=== PATIENT | female | born 1995 | race Two or more races ===

== ENCOUNTER 2024-10-04 12:26 | Observation (INO) | payer MEDICAID, SELFPAY ==
[2024-10-04] VITALS (72 sets, daily range): BP systolic 98–123; BP diastolic 53–71; PULSE 79–108; RESP 16–100; TEMP 36.6–36.7; O2SAT 87–100; BMI 27.9; BMI 28.1
--- NOTE | 2024-10-04 12:07 | PD.EDRME ---
Rapid Medical Screening Exam RME Arrival date/time: 10/04/24 11:09 This is a 29-year-old female that is a 3 para 2. Patient states she is approximately 29 weeks . Patient comes in with complaints of slipping in the shower. Patient states that she realized she slipped in the shower and just felt weakness after that. Patient states she felt dizzy and lightheaded. Patient states that she kind of fell to the side and hit her head to the bathtub a second time. Pt has a small abrasion to right forehead. Patient states that she has not felt her baby move after the fall. Patient will be sent to OB first and to be evaluated Chief Complaint: Fall Time Seen by Provider: 10/04/24 11:34 Vital signs: Vital Signs Temperature 98.1 F 10/04/24 11:34 Pulse Rate 86 10/04/24 11:34 Respiratory Rate 16 10/04/24 11:34 Blood Pressure 98/67 10/04/24 11:34 Pulse Oximetry (%) 99 10/04/24 11:34 Oxygen Delivery Method Room Air 10/04/24 11:34
--- NOTE | 2024-10-04 13:20 | XR_ITS ---
Examination: Complete OB ultrasound greater than 14 weeks Date and time of exam: October 04, 2024 1541 hrs. Indications: Patient fell today, single episode with pelvic pain Findings: Viable intrauterine single fetus with single amniotic sac presentation cephalic Cardiac motion 133 BPM Placenta fundal grade 0 Umbilical cord insertion seen Amniotic fluid index 12.0 cm Ovaries obscured by bowel gas. Composite estimated gestational age based on BPD, head circumference, abdominal circumference, femur length is 29 weeks 2 days Estimated weight 1377 g. Survey of intracranial anatomy, spinal anatomy, abdominal anatomy, four-chamber heart performed with no abnormalities identified. Impression: Viable intrauterine gestation cephalic presentation.
[2024-10-04 13:55] LABS: Basophils % (Auto) 0 % (0-2.5); Eosinophils # (Auto) 0.2 Thou/mm3 (0.0-0.5); Eosinophils % (Auto) 1 % (0-10); Hematocrit 34.7 % (36.0-46.0); Hemoglobin 11.9 g/dL (12.0-16.0); Immature Granulocytes % (Auto) 1 % (0-0); Immature Granulocytes Auto 0.08 Thou/mm3 (0.00-0.00); Lymphocytes # (Auto) 1.1 Thou/mm3 (1.0-4.8); Lymphocytes % (Auto) 9 % (10-50); Mean Corpuscular HGB Conc 34.3 g/dl (31.0-37.0); Mean Corpuscular Volume 87 fL (80-100); Monocytes # (Auto) 0.5 Thou/mm3 (0.0-0.8); Monocytes % (Auto) 4 % (0-12); Neutrophils # (Auto) 11.5 Thou/mm3 (1.8-7.7); Neutrophils % (Auto) 86 % (37-80); Nucleated Red Blood Cell % 0 /100 WBC (0); Platelet Count 267 Thou/mm3 (140-440); RDW Standard Deviation 39.5 fL (36.4-46.3); Red Blood Count 3.97 Miln/mm3 (4.00-5.20); White Blood Count 13.4 Thou/mm3 (3.6-11.0)
[2024-10-04 14:08] LABS: Fibrinogen 467 mg/dL (175-375); Partial Thromboplastin Time 24.6 Seconds (22.0-36.0); Prothrombin Time 10.5 Seconds (9.0-12.2)
--- NOTE | 2024-10-04 18:25 | ESPR_ITS ---
Documentation for date of: 10/04/24 OB Labor Progress Note Assessment and Plan Comments: Patient is a 29yo with SIUP at approx 29wk presenting to L&D after a fall. She notes feeling lightheaded and falling in shower. After getting out of the shower, she again felt lightheaded, believes she fainted and fell in her bedroom (not sure if she ever hit abdomen). She woke to her daughter screaming. [place] lightheaded once more when she initially presented to L&D, but no further episodes during the prolonged monitoring on L&D. Her concern is increased discomfort over her pubic bone with leg lifting- she has been having this for the past weeks with this (didn't have it with 2 prior pregnancies), but now seems worse after her fall. She notes no painful/regular ctx, no vaginal bleeding, no loss of fluid. Normal movement (wasn't sure she was feeling movement right after the fall which worried her, but has felt robust movement while on L&D). Current : She has had regular OB care with her OBGYN Hx of 2 term ROS negative other than what was described above. Vitals wnl, afebrile General: well developed, well nourished, no acute distress, conversant. Alert and oriented x3. No facial (forehead) bruising where patient endorses having hit her head. Cardiac: normal heart rate Lungs: breathing without distress Abdomen: soft, gravid, non-tender, no rebound or guarding. Discomfort over pubic symphysis. Extremities: no pain with palpation of calves No vaginal bleeding SCE: closed/50/-3, posterior/soft Prolonged monitoring: Cat 1 FHRT with +accels, no decels, mod maría [place]: no ctx pattern Radiology: Complete OB ultrasound greater than 14 weeks Date and time of exam: October 04, 2024 1541 hrs. Indications: Patient fell today, single episode with pelvic pain Findings: Viable intrauterine single fetus with single amniotic sac presentation cephalic Cardiac motion 133 BPM Placenta fundal grade 0 Umbilical cord insertion seen Amniotic fluid index 12.0 cm Ovaries obscured by bowel gas. Composite estimated gestational age based on BPD, head circumference, abdominal circumference, femur length is 29 weeks 2 days Estimated weight 1377 g. Survey of intracranial anatomy, spinal anatomy, abdominal anatomy, four-chamber heart performed with no abnormalities identified. Impression: Viable intrauterine gestation cephalic presentation. Labs: O positive maternal blood type Hgb 11.9 plt 267 fibrinogen 467 Assessment: Patient is a 29yo with SIUP at approx 29wk with no evidence of placental abruption s/p fall. Normal prolonged monitoring >6hr from fall. Rh positive. No anemia. Vitals wnl, benign exam. 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 I observed patient getting out of bed and ambulating to and from the restroom- despite discomfort from pubic diastasis, she has no impediment to ambulation. Plan: -Discussed reassuring findings with patient -Follow up with OB visit as scheduled -Discussed return precautions at length for vaginal bleeding, loss of fluid, contractions, worsening discomfort, decreased movement. -Note given for 1 week off work to rest to address pubic diastasis discomfort - to remain with patient for 24hr after fall and return for any changes in mentation or other concerning symptoms June Cordova MD
== END 2024-10-04 18:28 | disposition home or self-care (01) ==
PROVIDERS: Admitting Provider Obstetrics & Gynecology; Visit Provider Obstetrics & Gynecology
DX: O9A.213 Injury, poisoning and certain other consequences of external causes complicating pregnancy, third trimester (principal); S39.91XA Unspecified injury of abdomen, initial encounter; Z3A.29 29 weeks gestation of pregnancy; W18.2XXA Fall in (into) shower or empty bathtub, initial encounter
CPT/HCPCS: 36415; 59899; 76805; 80053; 81001; 85025; 85384; 85610; 85730

== ENCOUNTER 2024-10-14 15:27 | Outpatient (AMB) | payer MEDICAID, SELFPAY ==
--- NOTE | 2024-10-14 15:38 | AMB.OBINITIA ---
Vital Signs 10/14/24 15:39 Weight 69.456 kg Weight Measurement Method Standing Scale BP 106/70 Blood Pressure Source Automatic Cuff Blood Pressure Location Left Upper Arm Position Sitting Respiration 16 Pulse 91 Pulse Source Monitor Temp 97.2 F Temp Source Oral Pulse Oximetry (%) 99 Oxygen Delivery Method Room Air Allergies/Home Meds Allergies & Medications Allergies No Known Allergies Allergy (Verified 10/14/24 15:40) Medication Reconciliation No Known Home Medications 10/14/24 [History Confirmed 10/14/24] Intake Visit Data Collection New Patient or Established: Established Patient (seen at [facility] within 3 years) Reason for Visit:: OB Transfer of Care Consent obtained for Telemed Visit: No Seen by Clinical Staff ONLY (RN/MA): No Zipper Joiner Required: No Do You Feel Safe at Home: Yes Authorities Contacted: N/A PCP or OBGYN visit in last 3 months: Yes Date of Last PCP or OBGYN visit: 10/04/24 Hx Now: Yes Are you currently on any form of Control: No Last menstrual period: 03/12/24 Pain Present Currently: No Pain Scale Used: Flores-Serrano/Numerical Pain scale:: 0 Smoking Status Smoking Status: Never smoker Questionnaires Covid-19 Vaccine Questionnaire Has patient been vacinated for Covid-19 Have you been vacinated for Covid-19: Yes PHQ-9 PHQ-2 Over the last 2 weeks, how often have you been bothered by any of the following problems? 1. Little interest or pleasure in doing things: not at all 2. Feeling down, depressed, or hopeless: not at all Total score: 0 Depression screen completed yes Social History Living Situation History Marital Status: Lives With: Family Housing: House Tobacco History Smoking Status: Never smoker Alcohol History Alcohol Intake: Current Domestic Abuse History Do You Feel Safe at Home: Yes Past Medical History Past Medical History Have you ever been diagnosed with any of the following: Neurological Problems Cerebrovascular Accident (CVA): No Transient Ischemic Attacks (TIA): No Dementia: No Alzheimer's Disease: No Parkinson's Disease: No Brain Tumor: No Meningitis: No Seizures: No Epilepsy: No Multiple Sclerosis: No Cerebral Palsy: No Amyotrophic Lateral Sclerosis (ALS/Kelsey Gehrig's): No Guillain-Hartsfield Syndrome: No Spina Bifida: No Paralysis: No Peripheral Neuropathy: No Perez's Palsy: No Subdural Hematoma: No Migraine: No Head Trauma: No Spinal Cord Injury: No Traumatic Brain Injury: No Cardiology Problems Myocardial Infarction: No Cardiac Arrhythmia: No Atrial Fibrillation: No Angina: No Heart Murmur: No Coronary Artery Disease: No Atherosclerotic Heart Disease: No Peripheral Vascular Disease: No Hypercholesterolemia: No Aneurysm: No Congestive Heart Failure: No Congenital Heart Disease: No Valvular Heart Disease: No Rheumatic Fever: No Cardiomyopathy: No Edema: No Pericarditis: No Cellulitis: No Deep Vein Thrombosis: No Hypertension: No Hypotension: No Varicose Veins: No Respiratory Problems Chronic Obstructive Pulmonary Disease (COPD): No Asthma: Yes (Controlled asthma) Bronchitis: No Emphysema: No Pneumonia: No Pulmonary Fibrosis: No Tuberculosis: No Pulmonary Embolism: No Pulmonary Edema: No Sleep Apnea: No Stomache/Intestinal Problems Hepatitis: No Cirrhosis: No Pancreatitis: No Celiac Disease: No Gall Bladder Disease: No Gastrointestinal Bleed: No Esophageal Varices: No Choi's Esophagus: No Colitis: No Ulcerative Colitis: No Diverticulitis: No Diverticulosis: No Ulcer: No Colorectal Cancer: No Irritable Bowel: No Crohn's Disease: No Obstructive Bowel: No Hiatal Hernia: No Hemorrhoids: No Gastroesophageal Reflux Disease: No Obesity: No Genital/Urinary Problems Renal Disease: No Kidney Stones: No Polycystic Kidney Disease: No Neurogenic Bladder: No Inguinal Hernia: No Dialysis: No Prostate Cancer: No Benign Prostatic Hyperplasia: No Reproductive Problems Breast Cancer: No Endometriosis: Yes Genital Herpes: No Gonorrhea: No Pelvic Inflammatory Disease: No Previous Pregnancies: No Syphilis: No Testicular Cancer: No Uterine Prolapse: No Musculoskeletal Problems Muscular Dystrophy: No Myasthenia Gravis: No Marfan's Syndrome: No Bone Cancer: No Arthritis: No Rheumatoid Arthritis: No Osteoporosis: No Degenerative Disk Disease: No Gout: No Scoliosis: No Carpal Tunnel Syndrome: No Fibromyalgia: No Fractures: No Degenerative Joint Disease: No Osteomyelitis: No Poliovirus: No Head,Eye,Nose,Throat Problems Cataracts: No Glaucoma: No Blind: No Retinal Detachment: No Macular Degeneration: No Chronic Ear Infections: No Deafness: No Eye Prosthesis: No Endocrine Problems Diabetes Mellitus Type 1: No Diabetes Mellitus Type 2: No Hypoglycemia: No Kinza's Syndrome: No Providence's Disease: No Hyperthyroidism: No Hypothyroidism: No Parathyroid Disease: No Pituitary Disease: No Systemic Lupus Erythematosus: No Syndrome of Inappropriate Antidiuretic Hormone: No Adrenal Disease: No Graves' Disease: No Blood Problems Anemia: No Leukemia: No Hemophilia: No Thalassemia: No Sickle Cell Disease: No Clotting Problems: No Psychologic Problems Schizophrenia: No Recreational Drug Use: No Bipolar Disorder: No Depression: No Anxiety: No Behavior Problems: No Self-Mutilation: No Attention Deficit Disorder: No Attention Deficit Hyperactivity Disorder: No Depression: No Post Traumatic Stress Disorder: No Eating Disorder: No Other Problems Hospitalization: No Down Syndrome: No Autism: No Developmental Delay: No Shingles: No Falls: No Blood Transfusions: No Blood Transfusion Reaction: No Anesthesia Reactions: No Organ Transplant: No Chemotherapy: No Radiation Therapy: No Hyperbaric Therapy: No MRSA: No Vancomycin-Resistant Enterococci: No Human Immunodeficiency Virus (HIV): No Chicken Pox: Yes Measles: No Mumps: No Rubella ([place] Measles): No Pertussis: No Clostridium Difficile: No Cancer: No Cervical Cancer: No Lung Cancer: No Ovarian Cancer: No Surgical History Carotid Endarterectomy: No Coronary Artery Bypass Graft: No Valve Replacement: No Hysterectomy: No Pacemaker: No Thyroidectomy: No History of Present Illness HPI Narrative Patient is at 28 weeks gestation presenting for transfer of care from a different facility. has been uncomplicated thus far. She reports a history of short cervix in her first , but no such complication in the current . Patient experienced three episodes of dizziness and fainting at home, describing feeling lightheaded and not herself, which prompted an ER visit. At the ER, her initial blood pressure was 84/53, later improving to 98/xx. Patient admits to drinking approximately 32 ounces of water daily. ER testing was reported as normal. Patient received Tdap vaccine and mentioned a lymph node issue post-vaccination. She expressed feeling a bit sad about her work schedule compared to previous pregnancies. A plan is in place to monitor the baby's heart rate weekly starting at 32 weeks due to low blood pressure episodes. OB Initial Visit Menstrual History Menstrual reliability: definite Flow: normal Menstrual regularity: regular Monthly: Yes On control pills at conception: No OB History : 3 Para: 2 Hx # Pregnancies: 0 Hx Total # of Abortions (Spontaneous & Elective): 0 # of Living Children: 2 Delivery History 1st : Child's name: JANET date: 06/11/15 sex: female weight (lbs): 7000 g History of depression before or after : No 2nd : Child's name: CHRISTIANNE date: 08/03/19 sex: female Delivery type: vaginal weight (lbs): 6000 g History of depression before or after : No Infection History & Risk Evaluation History of STDs: none HIV risk evaluation: low risk Hepatitis B risk evaluation: low risk Patient or partner has history of Genital Herpes: No Varicella/chicken pox status: immunized Genetic Screening & History Genetic Screening/Teratology Counseling - Includes patient, baby's father, or anyone in either family with: 1. Patient's age 35 years or older as of estimated date of delivery: No 2. Thalassemia (Hebrew, Divehi, Mediterranean, or Background); MCV less than 80: No 3. Neural Tube Defect (Meningomyelocele, Spina Bifida, or Anencephaly): No 4. Congenital Heart Defect: No 5. Down Syndrome: No 6. Cecil-Sachs (Ashkenazi Jehovah'S Witness, Cajun, Citizen Of [place] British): No 7. Jaylyn Disease (Ashkenazi Jehovah'S Witness): No 8. Familial Dysautonomia (Ashkenazi Jehovah'S Witness): No 9. Sickle Cell Disease or Trait (): No 10. Hemophilia or other blood disorders: No 11. Muscular Dystrophy: No 12. Cystic Fibrosis: No 13. Rodney's Chorea: No 14. Mental Retardation/Autism: No 15. Other inherited genetic or chromosomal disorder: No 16. Maternal Metabolic Disorder (EG,TYPE 1 Diabetes, PKU): No 17. Patient or baby's father had a child with defects not listed above: No 18. Recurrent loss or a stillbirth: No 19. Medications (including supplements, vitamins, herbs or otc drugs)/illicit/recreational drugs/alcohol since last menstrual period: No 20. Any other: No Infection History 1. Live with someone with TB or exposed to TB: No 2. Rash or viral illness since last menstrual period: No 3. Hepatitis B,C: No Other (see comments) Source: [employer] OB Flowsheet OB Flowsheet Initial Weight: Not Recorded Date <del>?</del> EGA Weight Edema CTX Effacement BP Fundal ht Pres Dilation Effacement Station Visit Note Alb Glu FHR Mov 10/14/24 <del>?</del> 30w 6d 69.456 kg 106/70 31 cephalic 155 active Review of Systems Review of Systems Systems Reviewed: All systems reviewed, normal except as documented Exam General Limitations: no limitations General Appearance: alert, in no apparent distress, comfortable, cooperative, healthy appearing, well developed and well groomed Head Head exam: atraumatic, normocephalic and normal inspection Neck Neck exam: Present normal inspection, full ROM and trachea midline Chest Chest inspection: Present normal inspection and symmetric chest wall rise Abdominal Abdominal exam: Present soft and normal bowel sounds Extremities Extremities exam: Present normal inspection and full ROM Back Back exam: Present normal inspection and full ROM Psych Psychiatric exam: Present normal affect and normal mood Skin Skin exam: Present warm, dry, intact and normal color Assessment & Plan Diagnosis / Problem List (1) Supervision of high risk , unspecified, third trimester: Status: Acute Plan: Diagnostic Test Results and Labs: - Blood group: O positive, antibody screen negative - Rubella: Non-immune - RPR: Non-reactive - Hepatitis B surface antigen: Negative - Hepatitis C: Negative - HIV: Negative - Gonorrhea and chlamydia: Negative - NIPT (Non-Invasive Testing): Negative times three - ER testing: Normal (specific tests not specified) Assessment and Plan: , , 28 weeks gestation: - Uncomplicated thus far. - History of short cervix in first , not present in current . - Previous screening and tests reassuring. - Rubella non-immune, blood type O positive with negative antibody screen. - Schedule next ultrasound with Dr. Hernandez in 4 weeks. - Initiate weekly NSTs starting at 32 weeks gestation. - Patient's last day of work: October 27, 2024. - Maternity leave start: October 28, 2024. - Estimated due date: December 17, 2024. Recurrent syncope with hypotension: - Three episodes of dizziness and fainting at home, two involving actual fainting. - ER visit: initial BP 84/53, later improved to 98/xx. - ER testing reported as normal. - Patient drinking only about 32 ounces of water daily. - Encourage increased fluid intake. - Monitor blood pressure at future visits. - Patient placed on light duty at work due to fainting episodes. Immunization status: - Tdap vaccine received during recent ER visit. - Patient mentioned lymph node issue post-Tdap, advised not to worry. - No other vaccines currently needed. Additional Plan Follow Up: 2 Weeks Office Procedures OB Clinic LOC & Office Proc's Nursing/Assessment Patient Status: Initial/New Patient OB Clinic Nursing Assessment: BP Monitoring, Medication Reconciliation, Update PMH in EMR and Vital Signs OB Clinic Coordination of Care: Consent,records obtained, informed consent, Education Simp Pt/Fam, Lab and Imaging orders and Staff clarify orders Special Needs: Heart tones New Patient Charge New Patient Point Assignment: [id number] New Patient Point Charge: CHANNEL WORKER Level 4 ([id number]) Antepartum Initial or Follow-up Antepartum Initial Visit: Yes
[2024-10-14 15:39] VITALS: BP 106/70; PULSE 91; RESP 16; TEMP 36.2; O2SAT 99
== END 2024-10-14 15:50 | disposition home or self-care (01) ==
LOC: HODSOBC 15:27
PROVIDERS: PCP Obstetrics & Gynecology; Supervising Provider Obstetrics & Gynecology; Visit Provider Obstetrics & Gynecology
DX: O09.93 Supervision of high risk pregnancy, unspecified, third trimester (principal); Z3A.28 28 weeks gestation of pregnancy
CPT/HCPCS: 99204; 99214; G0463

== ENCOUNTER 2024-10-27 12:19 | Outpatient (CLI) | payer MEDICAID, SELFPAY ==
[2024-10-27 12:25] VITALS: BP 118/77; PULSE 93
--- NOTE | 2024-10-27 12:31 | XR_ITS ---
Examination: age Limited Technique: Limited transabdominal sonographic images pelvis Indications: History low amniotic fluid on ultrasound examination October 23, 2024 Findings: Amniotic fluid index 8.0 cm Cardiac motion 155 BPM Impression: Amniotic fluid index 8.0 cm
[2024-10-27 12:33] VITALS: BMI 28.9
[2024-10-27 12:34] VITALS: BP 118/77; PULSE 93; RESP 18; RESP 99; TEMP 36.7
== END 2024-10-27 14:10 | disposition home or self-care (01) ==
LOC: S4S1 12:20 → S4SX 12:21
PROVIDERS: Referring Provider Obstetrics & Gynecology; Visit Provider Obstetrics & Gynecology
DX: Z34.83 Encounter for supervision of other normal pregnancy, third trimester (principal); Z36.89 Encounter for other specified antenatal screening; Z3A.32 32 weeks gestation of pregnancy
CPT/HCPCS: 59025; 76815

== ENCOUNTER 2024-10-28 09:04 | Outpatient (AMB) | payer MEDICAID, SELFPAY ==
[2024-10-28 09:18] VITALS: BP 94/61; PULSE 123; RESP 16; TEMP 36.2; O2SAT 99; BMI 28.3
--- NOTE | 2024-10-28 09:18 | OBCLNT_ITS ---
Vital Signs 10/28/24 09:18 Height 1.55 m Height Method Stated Weight 68.039 kg Weight Measurement Method Standing Scale BMI 28.3 BP 94/61 Blood Pressure Source Automatic Cuff Blood Pressure Location Left Upper Arm Position Sitting Respiration 16 Pulse 123 H Pulse Source Monitor Temp 97.2 F Temp Source Oral Pulse Oximetry (%) 99 Oxygen Delivery Method Room Air Allergies/Home Meds Allergies & Medications Allergies No Known Allergies Allergy (Verified 10/28/24 09:19) Medication Reconciliation No Known Home Medications 10/14/24 [History Confirmed 10/14/24] Intake Visit Data Collection New Patient or Established: Established Patient (seen at [facility] within 3 years) Reason for Visit:: OBC Oligohydramnios Seen by Clinical Staff ONLY (RN/MA): No Lap Regulator Required: No Do You Feel Safe at Home: Yes Authorities Contacted: N/A PCP or OBGYN visit in last 3 months: Yes Date of Last PCP or OBGYN visit: 10/14/24 Hx Now: Yes Pain Present Currently: No Pain Scale Used: Flores-Serrano/Numerical Pain scale:: 0 Smoking Status Smoking Status: Never smoker Questionnaires Covid-19 Vaccine Questionnaire Has patient been vacinated for Covid-19 Have you been vacinated for Covid-19: Yes PHQ-9 PHQ-2 Over the last 2 weeks, how often have you been bothered by any of the following problems? 1. Little interest or pleasure in doing things: not at all 2. Feeling down, depressed, or hopeless: not at all Total score: 0 PHQ-9 3. Trouble falling or staying asleep, or sleeping too much: Not at all 4. Feeling tired or having little energy: Not at all 5. Poor appetite or overeating: Not at all 6. Feeling bad about yourself - or that you are a failure or have let yourself or your family down: Not at all 7. Trouble concentrating on things, such as reading the newspaper or watching television: Not at all 8. Moving or speaking so slowly that other people could have noticed? - Or the opposite - being so fidgety or restless that you have been moving around a lot more than usual: not at all 9. Thoughts that you would be better off or of hurting yourself in some way: Not at all Total score: 0 Source: Developed by Drs. Juwan Brock, Cindy Girard, Khoi Moura and colleagues, with an educational lamberto from [employer]. Depression screen completed yes Social History Living Situation History Lives With: Family Housing: House Tobacco History Smoking Status: Never smoker Alcohol History Alcohol Intake: Current Domestic Abuse History Do You Feel Safe at Home: Yes Past Medical History Past Medical History Have you ever been diagnosed with any of the following: Neurological Problems Cerebrovascular Accident (CVA): No Transient Ischemic Attacks (TIA): No Dementia: No Alzheimer's Disease: No Parkinson's Disease: No Brain Tumor: No Meningitis: No Seizures: No Epilepsy: No Multiple Sclerosis: No Cerebral Palsy: No Amyotrophic Lateral Sclerosis (ALS/Kelsey Gehrig's): No Guillain-Davenport Syndrome: No Spina Bifida: No Paralysis: No Peripheral Neuropathy: No Perez's Palsy: No Subdural Hematoma: No Migraine: No Head Trauma: No Spinal Cord Injury: No Traumatic Brain Injury: No Cardiology Problems Myocardial Infarction: No Cardiac Arrhythmia: No Atrial Fibrillation: No Angina: No Heart Murmur: No Coronary Artery Disease: No Atherosclerotic Heart Disease: No Peripheral Vascular Disease: No Hypercholesterolemia: No Aneurysm: No Congestive Heart Failure: No Congenital Heart Disease: No Valvular Heart Disease: No Rheumatic Fever: No Cardiomyopathy: No Edema: No Pericarditis: No Cellulitis: No Deep Vein Thrombosis: No Hypertension: No Hypotension: No Varicose Veins: No Respiratory Problems Chronic Obstructive Pulmonary Disease (COPD): No Asthma: Yes (Controlled asthma) Bronchitis: No Emphysema: No Pneumonia: No Pulmonary Fibrosis: No Tuberculosis: No Pulmonary Embolism: No Pulmonary Edema: No Sleep Apnea: No Stomache/Intestinal Problems Hepatitis: No Cirrhosis: No Pancreatitis: No Celiac Disease: No Gall Bladder Disease: No Gastrointestinal Bleed: No Esophageal Varices: No Choi's Esophagus: No Colitis: No Ulcerative Colitis: No Diverticulitis: No Diverticulosis: No Ulcer: No Colorectal Cancer: No Irritable Bowel: No Crohn's Disease: No Obstructive Bowel: No Hiatal Hernia: No Hemorrhoids: No Gastroesophageal Reflux Disease: No Obesity: No Genital/Urinary Problems Renal Disease: No Kidney Stones: No Polycystic Kidney Disease: No Neurogenic Bladder: No Inguinal Hernia: No Dialysis: No Prostate Cancer: No Benign Prostatic Hyperplasia: No Reproductive Problems Breast Cancer: No Endometriosis: Yes Genital Herpes: No Gonorrhea: No Pelvic Inflammatory Disease: No Previous Pregnancies: No Syphilis: No Testicular Cancer: No Uterine Prolapse: No Musculoskeletal Problems Muscular Dystrophy: No Myasthenia Gravis: No Marfan's Syndrome: No Bone Cancer: No Arthritis: No Rheumatoid Arthritis: No Osteoporosis: No Degenerative Disk Disease: No Gout: No Scoliosis: No Carpal Tunnel Syndrome: No Fibromyalgia: No Fractures: No Degenerative Joint Disease: No Osteomyelitis: No Poliovirus: No Head,Eye,Nose,Throat Problems Cataracts: No Glaucoma: No Blind: No Retinal Detachment: No Macular Degeneration: No Chronic Ear Infections: No Deafness: No Eye Prosthesis: No Endocrine Problems Diabetes Mellitus Type 1: No Diabetes Mellitus Type 2: No Hypoglycemia: No Kinza's Syndrome: No [place]'s Disease: No Hyperthyroidism: No Hypothyroidism: No Parathyroid Disease: No Pituitary Disease: No Systemic Lupus Erythematosus: No Syndrome of Inappropriate Antidiuretic Hormone: No Adrenal Disease: No Graves' Disease: No Blood Problems Anemia: No Leukemia: No Hemophilia: No Thalassemia: No Sickle Cell Disease: No Clotting Problems: No Psychologic Problems Schizophrenia: No Recreational Drug Use: No Bipolar Disorder: No Depression: No Anxiety: No Behavior Problems: No Self-Mutilation: No Attention Deficit Disorder: No Attention Deficit Hyperactivity Disorder: No Depression: No Post Traumatic Stress Disorder: No Eating Disorder: No Other Problems Hospitalization: No Down Syndrome: No Autism: No Developmental Delay: No Shingles: No Falls: No Blood Transfusions: No Blood Transfusion Reaction: No Anesthesia Reactions: No Organ Transplant: No Chemotherapy: No Radiation Therapy: No Hyperbaric Therapy: No MRSA: No Vancomycin-Resistant Enterococci: No Human Immunodeficiency Virus (HIV): No Chicken Pox: Yes Measles: No Mumps: No Rubella ([place] Measles): No Pertussis: No Clostridium Difficile: No Cancer: No Cervical Cancer: No Lung Cancer: No Ovarian Cancer: No Surgical History Carotid Endarterectomy: No Coronary Artery Bypass Graft: No Valve Replacement: No Hysterectomy: No Pacemaker: No Thyroidectomy: No History of Present Illness HPI Narrative at 32 weeks and 5 days presents for routine visit. Patient has no acute complaints today. She started care at [facility], and her labs were transferred over, and all her records were reviewed. She is getting weekly NSTs on labor and delivery. She had a couple of ER visits due to hypotension, but now she has no similar complaints. Patient reports still experiencing some dizziness, particularly when sitting down. She is currently consuming between 40 to 60 ounces of fluids daily. Patient underwent repeat amniotic fluid assessment, with initial measurement of 6.7 on , which increased to 8 on the subsequent evaluation. Review of Systems Review of Systems Systems Reviewed: All systems reviewed, normal except as documented Visit ESTELA Calculator Estimated Delivery Date Method Current WG Current Estimate 12/17/24 LMP (Certain) 32w 6d Initial Weight: Not Recorded Date -?-?-?-?-?-?-?-?-?-?-?-?- EGA Weight Edema CTX Effacement BP Fundal ht Pres Dilation Effacement Station Visit Note Alb Glu FHR Mov 10/14/24 -?-?-?-?-?-?-?-?-?-?-?-?- 30w 6d 69.456 kg 106/70 31 cephalic 155 active 10/28/24 -?-?-?-?-?-?-?-?-?-?-?-?- 32w 6d 68.039 kg 94/61 33 cephalic 150 active Exam General Limitations: no limitations General Appearance: alert, in no apparent distress, comfortable, cooperative, healthy appearing, well developed and well groomed Head Head exam: atraumatic, normocephalic and normal inspection Neck Neck exam: Present normal inspection, full ROM and trachea midline Chest Chest inspection: Present normal inspection and symmetric chest wall rise Abdominal Abdominal exam: Present soft and normal bowel sounds Extremities Extremities exam: Present normal inspection and full ROM Back Back exam: Present normal inspection and full ROM Psych Psychiatric exam: Present normal affect and normal mood Skin Skin exam: Present warm, dry, intact and normal color Assessment & Plan Diagnosis / Problem List (1) Oligohydramnios antepartum: Status: Acute (2) Supervision of high risk , unspecified, third trimester: Status: Acute Plan: at 32 weeks 5 days [id number] at 32 weeks and 5 days presenting for routine visit. Patient has no acute complaints today. She is receiving weekly non-stress tests (NSTs) on labor and delivery. Recent amniotic fluid index (SANJAY) measurements showed improvement from 6.7 to 8, which are both within normal range (>5 considered good). Patient has experienced episodes of hypotension and dizziness, particularly when changing positions, despite adequate fluid intake of 40-60 ounces daily. - Continue weekly NSTs - Follow-up appointment in 2 weeks, then transition to weekly visits - Monitor SANJAY measurements - Recommend addition of electrolyte drinks to daily fluid intake - Consider induction at 39 weeks if dizziness persists - Plan for possible induction at 37 weeks if SANJAY drops below 6 again - Continue monitoring for symptoms of hypotension and dizziness (3) Active labor at term: Status: Acute Additional Assessment Medical Decision Making Ellie Bustos is a 29-year-old [id number] at 32 weeks and 5 days gestation presenting for a routine visit with no acute complaints. The patient's history of recent ER visits due to hypotension was considered, but she currently reports no similar symptoms. Amniotic fluid levels were evaluated, with the most recent measurement of 8 cm being within normal limits (>5 cm considered good). The slight increase from 6.7 cm to 8 cm is reassuring. The patient's report of continued dizziness, especially when changing positions, suggests ongoing o rthostatic hypotension. Fluid intake was assessed and found to be adequate at 40-60 ounces per day. The possibility of insufficient salt intake was considered as a contributing factor to hypotension. Management options were weighed, including potential induction at 39 weeks if dizziness persists or earlier at 37 weeks if amniotic fluid drops below 6 cm again. The complexity of the case is acknowledged, with multiple factors influencing the decision-making process for timing of delivery. Additional Plan Follow Up: 2 Weeks Office Procedures OB Clinic LOC & Office Proc's Nursing/Assessment Patient Status: Established Patient OB Clinic Nursing Assessment: BP Monitoring, Medication Reconciliation, Update PMH in EMR and Vital Signs OB Clinic Coordination of Care: Consent,records obtained, informed consent, Education Simp Pt/Fam and Staff clarify orders Special Needs: Heart tones Established Patient Charge Established Patient Point Assignment: 105 Established Patient Point Charge: EP Level 3 (80-115)
== END 2024-10-28 09:34 | disposition home or self-care (01) ==
LOC: HODSOBC 09:04
PROVIDERS: PCP Obstetrics & Gynecology; Referring Provider Obstetrics & Gynecology; Supervising Provider Obstetrics & Gynecology; Visit Provider Obstetrics & Gynecology
DX: O09.93 Supervision of high risk pregnancy, unspecified, third trimester (principal); O41.03X0 Oligohydramnios, third trimester, not applicable or unspecified; Z3A.32 32 weeks gestation of pregnancy
CPT/HCPCS: 99213; G0463

== ENCOUNTER 2024-11-10 10:03 | Outpatient (AMB) | payer MEDICAID, SELFPAY ==
[2024-11-10 10:15] VITALS: BP 105/71; PULSE 100; RESP 18; TEMP 36.6; O2SAT 98; BMI 29.5
--- NOTE | 2024-11-10 10:15 | AMB.OBVISIT ---
Vital Signs 11/10/24 10:15 Height 1.55 m Height Method Stated Weight 70.931 kg Weight Measurement Method Standing Scale BMI 29.5 BP 105/71 Blood Pressure Source Automatic Cuff Blood Pressure Location Left Upper Arm Position Sitting Respiration 18 Pulse 100 Pulse Source Monitor Temp 98 F Temp Source Oral Pulse Oximetry (%) 98 Oxygen Delivery Method Room Air Allergies/Home Meds Allergies & Medications Allergies No Known Allergies Allergy (Verified 11/20/24 13:13) Medication Reconciliation No Known Home Medications 11/20/24 [History Confirmed 11/20/24] Intake Visit Data Collection New Patient or Established: Established Patient (seen at [facility] within 3 years) Reason for Visit:: CARE Seen by Clinical Staff ONLY (RN/MA): No Warp Hanger Required: No Do You Feel Safe at Home: Yes Authorities Contacted: N/A PCP or OBGYN visit in last 3 months: Yes Date of Last PCP or OBGYN visit: 11/06/24 Hx Now: Yes Are you currently on any form of Control: No Last menstrual period: 03/12/24 Pain Present Currently: No Pain Scale Used: Flores-Serrano/Numerical Pain scale:: 0 Smoking Status Smoking Status: Never smoker Questionnaires Covid-19 Vaccine Questionnaire Has patient been vacinated for Covid-19 Have you been vacinated for Covid-19: No PHQ-9 PHQ-2 Over the last 2 weeks, how often have you been bothered by any of the following problems? 1. Little interest or pleasure in doing things: not at all 2. Feeling down, depressed, or hopeless: not at all Total score: 0 PHQ-9 3. Trouble falling or staying asleep, or sleeping too much: Not at all 4. Feeling tired or having little energy: Not at all 5. Poor appetite or overeating: Not at all 6. Feeling bad about yourself - or that you are a failure or have let yourself or your family down: Not at all 7. Trouble concentrating on things, such as reading the newspaper or watching television: Not at all 8. Moving or speaking so slowly that other people could have noticed? - Or the opposite - being so fidgety or restless that you have been moving around a lot more than usual: not at all 9. Thoughts that you would be better off or of hurting yourself in some way: Not at all Total score: 0 Source: Developed by Drs. Juwan Brock, Cindy Girard, Khoi Moura and colleagues, with an educational lamberto from [employer]. Depression screen completed yes Social History Living Situation History Lives With: Family Housing: House Tobacco History Smoking Status: Never smoker Second Hand Smoke Exposure: No Alcohol History Alcohol Intake: Current Substance Use History Substance Use: NONE Domestic Abuse History Do You Feel Safe at Home: Yes Past Medical History Past Medical History Have you ever been diagnosed with any of the following: Neurological Problems Cerebrovascular Accident (CVA): No Transient Ischemic Attacks (TIA): No Dementia: No Alzheimer's Disease: No Parkinson's Disease: No Brain Tumor: No Meningitis: No Seizures: No Epilepsy: No Multiple Sclerosis: No Cerebral Palsy: No Amyotrophic Lateral Sclerosis (ALS/Kelsey Gehrig's): No Guillain-Beckwourth Syndrome: No Spina Bifida: No Paralysis: No Peripheral Neuropathy: No Perez's Palsy: No Subdural Hematoma: No Migraine: No Head Trauma: No Spinal Cord Injury: No Traumatic Brain Injury: No Cardiology Problems Myocardial Infarction: No Cardiac Arrhythmia: No Atrial Fibrillation: No Angina: No Heart Murmur: No Coronary Artery Disease: No Atherosclerotic Heart Disease: No Peripheral Vascular Disease: No Hypercholesterolemia: No Aneurysm: No Congestive Heart Failure: No Congenital Heart Disease: No Valvular Heart Disease: No Rheumatic Fever: No Cardiomyopathy: No Edema: No Pericarditis: No Cellulitis: No Deep Vein Thrombosis: No Hypertension: No Hypotension: No Varicose Veins: No Respiratory Problems Chronic Obstructive Pulmonary Disease (COPD): No Asthma: Yes (Controlled asthma) Bronchitis: No Emphysema: No Pneumonia: No Pulmonary Fibrosis: No Tuberculosis: No Pulmonary Embolism: No Pulmonary Edema: No Sleep Apnea: No CPAP Dependent: No Respiratory Aspiration: No Dyspnea: No Orthopnea: No Hx Cough: No Cough: No Wheezing: No Chest Deformities: No Smoking: No Smoking Cessation Counseling: No Smoking Exposure: No Tobacco Use: No Clubbing: No Exposure to Respiratory Irritants: No Intubation: No Stomache/Intestinal Problems Liver Cancer: No Hepatitis: No Cirrhosis: No Pancreatitis: No Celiac Disease: No Gall Bladder Disease: No Gastrointestinal Bleed: No Esophageal Varices: No Choi's Esophagus: No Colitis: No Ulcerative Colitis: No Diverticulitis: No Diverticulosis: No Ulcer: No Colorectal Cancer: No Irritable Bowel: No Crohn's Disease: No Obstructive Bowel: No Hiatal Hernia: No Hemorrhoids: No Gastroesophageal Reflux Disease: No Obesity: No Genital/Urinary Problems Renal Disease: No Kidney Stones: No Polycystic Kidney Disease: No Neurogenic Bladder: No Inguinal Hernia: No Dialysis: No Prostate Cancer: No Benign Prostatic Hyperplasia: No Reproductive Problems Breast Cancer: No Endometriosis: Yes Genital Herpes: No Gonorrhea: No Pelvic Inflammatory Disease: No Previous Pregnancies: No Syphilis: No Testicular Cancer: No Uterine Prolapse: No Musculoskeletal Problems Muscular Dystrophy: No Myasthenia Gravis: No Marfan's Syndrome: No Bone Cancer: No Arthritis: No Rheumatoid Arthritis: No Osteoporosis: No Degenerative Disk Disease: No Gout: No Scoliosis: No Carpal Tunnel Syndrome: No Fibromyalgia: No Fractures: No Degenerative Joint Disease: No Osteomyelitis: No Poliovirus: No Head,Eye,Nose,Throat Problems Cataracts: No Glaucoma: No Blind: No Retinal Detachment: No Macular Degeneration: No Chronic Ear Infections: No Deafness: No Eye Prosthesis: No Endocrine Problems Diabetes Mellitus Type 1: No Diabetes Mellitus Type 2: No Hypoglycemia: No [place]'s Syndrome: No Jacek's Disease: No Hyperthyroidism: No Hypothyroidism: No Parathyroid Disease: No Pituitary Disease: No Systemic Lupus Erythematosus: No Syndrome of Inappropriate Antidiuretic Hormone: No Adrenal Disease: No Graves' Disease: No Blood Problems Anemia: No Leukemia: No Hemophilia: No Thalassemia: No Sickle Cell Disease: No Clotting Problems: No Psychologic Problems Schizophrenia: No Recreational Drug Use: No Bipolar Disorder: No Depression: No Anxiety: No Behavior Problems: No Self-Mutilation: No Attention Deficit Disorder: No Attention Deficit Hyperactivity Disorder: No Depression: No Post Traumatic Stress Disorder: No Eating Disorder: No Other Problems Hospitalization: No Down Syndrome: No Autism: No Developmental Delay: No Shingles: No Falls: No Blood Transfusions: No Blood Transfusion Reaction: No Anesthesia Reactions: No Organ Transplant: No Chemotherapy: No Radiation Therapy: No Hyperbaric Therapy: No MRSA: No Vancomycin-Resistant Enterococci: No Human Immunodeficiency Virus (HIV): No Chicken Pox: Yes Measles: No Mumps: No Rubella ([place] Measles): No Pertussis: No Clostridium Difficile: No Cancer: No Cervical Cancer: No Lung Cancer: No Ovarian Cancer: No Surgical History Carotid Endarterectomy: No Coronary Artery Bypass Graft: No Valve Replacement: No Hysterectomy: No Pacemaker: No Thyroidectomy: No History of Present Illness HPI Narrative The patient reports her last SANJAY (amniotic fluid index) was 9.2, which is improving. She denies experiencing any contractions but notes frequent movement. The patient describes symptoms suggestive of a possible vaginal yeast infection. She reports experiencing mild irritation and white discharge. She denies itching or burning but mentions a sensation of slight inflammation. The patient states she has never had a yeast infection before, to her knowledge. She denies recent antibiotic use or any recent illnesses. No CTX/LOF/VB, reports good FM+ Diagnostic Test Results and Labs: - Blood group: O positive, antibody screen negative - Rubella: Non-immune - RPR: Non-reactive - Hepatitis B surface antigen: Negative - Hepatitis C: Negative - HIV: Negative - Gonorrhea and chlamydia: Negative - NIPT (Non-Invasive Testing): Negative times three - ER testing: Normal (specific tests not specified) Review of Systems Review of Systems Systems Reviewed: All systems reviewed, normal except as documented Visit ESTELA Calculator Estimated Delivery Date Method Current WG Current Estimate 12/17/24 LMP (Certain) 36w 2d Initial Weight: Not Recorded Date <del>?</del> EGA Weight Edema CTX Effacement BP Fundal ht Pres Dilation Effacement Station Visit Note Alb Glu FHR Mov 10/14/24 <del>?</del> 30w 6d 69.456 kg 106/70 31 cephalic 155 active 10/28/24 <del>?</del> 32w 6d 68.039 kg 94/61 33 cephalic 150 active Exam General Limitations: no limitations General Appearance: alert, in no apparent distress, comfortable, cooperative, healthy appearing, well developed and well groomed Head Head exam: atraumatic, normocephalic and normal inspection Neck Neck exam: Present normal inspection, full ROM and trachea midline Chest Chest inspection: Present normal inspection and symmetric chest wall rise Abdominal Abdominal exam: Present soft and normal bowel sounds Extremities Extremities exam: Present normal inspection and full ROM Back Back exam: Present normal inspection and full ROM Psych Psychiatric exam: Present normal affect and normal mood Skin Skin exam: Present warm, dry, intact and normal color Assessment & Plan Diagnosis / Problem List (1) Oligohydramnios antepartum: Status: Acute (2) Supervision of high risk , unspecified, third trimester: Status: Acute Plan: at 34 weeks 5 days gestation Patient is at 34 weeks and 5 days gestation. Recent amniotic fluid index (SANJAY) was 9.2, showing improvement. movement is reported as good with no contractions. Recent ultrasound from last week showed good growth and no concerning findings. heart rate is 138 bpm, which is within normal range. - Next visit scheduled at 36 weeks for Group B Streptococcus (GBS) screening - Weekly visits to commence after 36 weeks - Membrane sweep planned at 39 weeks - Obtain ultrasound report from Dr. Hernandez's office - Follow-up appointment scheduled for November 17 Suspected vaginal yeast infection Patient reports mild vaginal irritation and white discharge without itching or burning. No recent antibiotic use reported. Given the status, a yeast infection is suspected. - Prescribe antifungal cream for treatment Ventricular septal defect (VSD) on ultrasound A VSD was noted on a previous ultrasound. The clinician explains that this is a common finding in development and is expected to close as the progresses to term. It is not considered a concern at this time. - No specific interventions required at this time - Continue routine care and monitoring Additional Plan Follow Up: 1 Week Office Procedures OB Clinic LOC & Office Proc's Nursing/Assessment Patient Status: Established Patient OB Clinic Nursing Assessment: Medication Reconciliation, Update PMH in EMR and Vital Signs OB Clinic Coordination of Care: Complex Care and Chronic Disease 1-5, Consent,records obtained, informed consent, Education Simp Pt/Fam, Results/Orders obtained and Staff clarify orders Special Needs: Heart tones Established Patient Charge Established Patient Point Assignment: 120 Established Patient Point Charge: EP Level 4 (120-155)
== END 2024-11-10 10:38 | disposition home or self-care (01) ==
LOC: HODSOBC 10:03
PROVIDERS: PCP Obstetrics & Gynecology; Referring Provider Obstetrics & Gynecology; Supervising Provider Obstetrics & Gynecology; Visit Provider Obstetrics & Gynecology
DX: O41.03X0 Oligohydramnios, third trimester, not applicable or unspecified (principal); O09.93 Supervision of high risk pregnancy, unspecified, third trimester; Z3A.34 34 weeks gestation of pregnancy
CPT/HCPCS: 99213; 99214; G0463

== ENCOUNTER 2024-11-20 13:06 | Outpatient (AMB) | payer MEDICAID, SELFPAY ==
[2024-11-20 13:12] VITALS: BP 113/74; PULSE 90; RESP 16; TEMP 35.7; O2SAT 98; BMI 29.5
--- NOTE | 2024-11-20 13:12 | AMB.OBVISIT ---
Vital Signs 11/20/24 13:12 Height 1.55 m Height Method Stated Weight 70.817 kg Weight Measurement Method Standing Scale BMI 29.5 BP 113/74 Blood Pressure Source Automatic Cuff Blood Pressure Location Left Upper Arm Position Sitting Respiration 16 Pulse 90 Pulse Source Monitor Temp 96.3 F L Temp Source Oral Pulse Oximetry (%) 98 Oxygen Delivery Method Room Air Allergies/Home Meds Allergies & Medications Allergies No Known Allergies Allergy (Verified 11/24/24 09:21) Medication Reconciliation albuterol sulfate 90 mcg/actuation aerosol inhaler 4 inh inhalation Q6H PRN shortness of breath or wheezing 30 days #8.5 grams 11/25/24 [Rx] Intake Visit Data Collection New Patient or Established: Established Patient (seen at [facility] within 3 years) Reason for Visit:: OBC Seen by Clinical Staff ONLY (RN/MA): No Process Control Engineer Required: No Do You Feel Safe at Home: Yes Authorities Contacted: N/A PCP or OBGYN visit in last 3 months: Yes Date of Last PCP or OBGYN visit: 10/28/24 Hx Now: Yes Are you currently on any form of Control: No Pain Present Currently: No Pain Scale Used: Flores-Serrano/Numerical Pain scale:: 0 Smoking Status Smoking Status: Never smoker Questionnaires Covid-19 Vaccine Questionnaire Has patient been vacinated for Covid-19 Have you been vacinated for Covid-19: Yes PHQ-9 PHQ-2 Over the last 2 weeks, how often have you been bothered by any of the following problems? 1. Little interest or pleasure in doing things: not at all 2. Feeling down, depressed, or hopeless: not at all Total score: 0 PHQ-9 4. Feeling tired or having little energy: Not at all 5. Poor appetite or overeating: Not at all 6. Feeling bad about yourself - or that you are a failure or have let yourself or your family down: Not at all 7. Trouble concentrating on things, such as reading the newspaper or watching television: Not at all 8. Moving or speaking so slowly that other people could have noticed? - Or the opposite - being so fidgety or restless that you have been moving around a lot more than usual: not at all 9. Thoughts that you would be better off or of hurting yourself in some way: Not at all If you checked off any problems, how difficult have these problems made it for you to do your work, take care of things at home, or get along with other people?: not difficult at all Source: Developed by Drs. Juwan Brock, Cindy Girard, Khoi Moura and colleagues, with an educational lamberto from [employer]. Depression screen completed yes Social History Living Situation History Marital Status: Lives With: Family Housing: House Tobacco History Smoking Status: Never smoker Second Hand Smoke Exposure: No Alcohol History Alcohol Intake: Current Substance Use History Substance Use: NONE Domestic Abuse History Do You Feel Safe at Home: Yes Past Medical History Past Medical History Have you ever been diagnosed with any of the following: Neurological Problems Cerebrovascular Accident (CVA): No Transient Ischemic Attacks (TIA): No Dementia: No Alzheimer's Disease: No Parkinson's Disease: No Brain Tumor: No Meningitis: No Seizures: No Epilepsy: No Multiple Sclerosis: No Cerebral Palsy: No Amyotrophic Lateral Sclerosis (ALS/Kelsey Gehrig's): No Guillain-[place] Syndrome: No Spina Bifida: No Paralysis: No Peripheral Neuropathy: No Perez's Palsy: No Subdural Hematoma: No Migraine: No Head Trauma: No Spinal Cord Injury: No Traumatic Brain Injury: No Cardiology Problems Myocardial Infarction: No Cardiac Arrhythmia: No Atrial Fibrillation: No Angina: No Heart Murmur: No Coronary Artery Disease: No Atherosclerotic Heart Disease: No Peripheral Vascular Disease: No Hypercholesterolemia: No Aneurysm: No Congestive Heart Failure: No Congenital Heart Disease: No Valvular Heart Disease: No Rheumatic Fever: No Cardiomyopathy: No Edema: No Pericarditis: No Cellulitis: No Deep Vein Thrombosis: No Hypertension: No Hypotension: No Varicose Veins: No Respiratory Problems Chronic Obstructive Pulmonary Disease (COPD): No Asthma: Yes (Controlled asthma) Bronchitis: No Emphysema: No Pneumonia: No Pulmonary Fibrosis: No Tuberculosis: No Pulmonary Embolism: No Pulmonary Edema: No Sleep Apnea: No CPAP Dependent: No Respiratory Aspiration: No Dyspnea: No Orthopnea: No Hx Cough: No Cough: No Wheezing: No Chest Deformities: No Smoking: No Smoking Cessation Counseling: No Smoking Exposure: No Tobacco Use: No Clubbing: No Exposure to Respiratory Irritants: No Intubation: No Stomache/Intestinal Problems Liver Cancer: No Hepatitis: No Cirrhosis: No Pancreatitis: No Celiac Disease: No Gall Bladder Disease: No Gastrointestinal Bleed: No Esophageal Varices: No Choi's Esophagus: No Colitis: No Ulcerative Colitis: No Diverticulitis: No Diverticulosis: No Ulcer: No Colorectal Cancer: No Irritable Bowel: No Crohn's Disease: No Obstructive Bowel: No Hiatal Hernia: No Hemorrhoids: No Gastroesophageal Reflux Disease: No Obesity: No Genital/Urinary Problems Renal Disease: No Kidney Stones: No Polycystic Kidney Disease: No Neurogenic Bladder: No Inguinal Hernia: No Dialysis: No Prostate Cancer: No Benign Prostatic Hyperplasia: No Reproductive Problems Breast Cancer: No Endometriosis: Yes Genital Herpes: No Gonorrhea: No Pelvic Inflammatory Disease: No Previous Pregnancies: No Syphilis: No Testicular Cancer: No Uterine Prolapse: No Musculoskeletal Problems Muscular Dystrophy: No Myasthenia Gravis: No Marfan's Syndrome: No Bone Cancer: No Arthritis: No Rheumatoid Arthritis: No Osteoporosis: No Degenerative Disk Disease: No Gout: No Scoliosis: No Carpal Tunnel Syndrome: No Fibromyalgia: No Fractures: No Degenerative Joint Disease: No Osteomyelitis: No Poliovirus: No Head,Eye,Nose,Throat Problems Cataracts: No Glaucoma: No Blind: No Retinal Detachment: No Macular Degeneration: No Chronic Ear Infections: No Deafness: No Eye Prosthesis: No Endocrine Problems Diabetes Mellitus Type 1: No Diabetes Mellitus Type 2: No Hypoglycemia: No Kinza's Syndrome: No [place]'s Disease: No Hyperthyroidism: No Hypothyroidism: No Parathyroid Disease: No Pituitary Disease: No Systemic Lupus Erythematosus: No Syndrome of Inappropriate Antidiuretic Hormone: No Adrenal Disease: No Graves' Disease: No Blood Problems Anemia: No Leukemia: No Hemophilia: No Thalassemia: No Sickle Cell Disease: No Clotting Problems: No Psychologic Problems Schizophrenia: No Recreational Drug Use: No Bipolar Disorder: No Depression: No Anxiety: No Behavior Problems: No Self-Mutilation: No Attention Deficit Disorder: No Attention Deficit Hyperactivity Disorder: No Depression: No Post Traumatic Stress Disorder: No Eating Disorder: No Other Problems Hospitalization: No Down Syndrome: No Autism: No Developmental Delay: No Shingles: No Falls: No Blood Transfusions: No Blood Transfusion Reaction: No Anesthesia Reactions: No Organ Transplant: No Chemotherapy: No Radiation Therapy: No Hyperbaric Therapy: No MRSA: No Vancomycin-Resistant Enterococci: No Human Immunodeficiency Virus (HIV): No Chicken Pox: Yes Measles: No Mumps: No Rubella (English Measles): No Pertussis: No Clostridium Difficile: No Cancer: No Cervical Cancer: No Lung Cancer: No Ovarian Cancer: No Surgical History Carotid Endarterectomy: No Coronary Artery Bypass Graft: No Valve Replacement: No Hysterectomy: No Pacemaker: No Thyroidectomy: No History of Present Illness HPI Narrative No CTX/LOF/VB, reports good FM+ Diagnostic Test Results and Labs: - Blood group: O positive, antibody screen negative - Rubella: Non-immune - RPR: Non-reactive - Hepatitis B surface antigen: Negative - Hepatitis C: Negative - HIV: Negative - Gonorrhea and chlamydia: Negative - NIPT (Non-Invasive Testing): Negative times three - ER testing: Normal (specific tests not specified) Review of Systems Review of Systems Systems Reviewed: All systems reviewed, normal except as documented Visit ESTELA Calculator Estimated Delivery Date Method Current WG Current Estimate 12/17/24 LMP (Certain) 37w 2d Initial Weight: Not Recorded Date <del>?</del> EGA Weight Edema CTX Effacement BP Fundal ht Pres Dilation Effacement Station Visit Note Alb Glu FHR Mov 10/14/24 <del>?</del> 30w 6d 69.456 kg 106/70 31 cephalic 155 active 10/28/24 <del>?</del> 32w 6d 68.039 kg 94/61 33 cephalic 150 active 11/20/24 <del>?</del> 36w 1d 70.817 kg 113/74 36 cephalic No CTX/LOF/VB, reports good FM+ GBS done 145 active Exam General Limitations: no limitations General Appearance: alert, in no apparent distress, comfortable, cooperative, healthy appearing, well developed and well groomed Head Head exam: atraumatic, normocephalic and normal inspection Abdominal Abdominal exam: Present soft and normal bowel sounds Psych Psychiatric exam: Present normal affect and normal mood Skin Skin exam: Present warm, dry, intact and normal color Assessment & Plan Diagnosis / Problem List (1) Oligohydramnios antepartum: Status: Acute (2) Supervision of high risk , unspecified, third trimester: Status: Acute Plan: at 36 weeks 1 days gestation Patient is at 34 weeks and 5 days gestation. Recent amniotic fluid index (SANJAY) was 9.2, showing improvement. movement is reported as good with no contractions. Recent ultrasound from last week showed good growth and no concerning findings. heart rate is 138 bpm, which is within normal range. - Group B Streptococcus (GBS) screening - Weekly visits to commence after 36 weeks - Membrane sweep planned at 39 weeks - Obtain ultrasound report from Dr. Hernandez's office - Follow-up appointment scheduled for November 17 Office Procedures OB Clinic LOC & Office Proc's Nursing/Assessment Patient Status: Established Patient OB Clinic Nursing Assessment: BP Monitoring, Medication Reconciliation, Update PMH in EMR and Vital Signs OB Clinic Coordination of Care: Consent,records obtained, informed consent, Education Simp Pt/Fam and Staff clarify orders Special Needs: Heart tones Established Patient Charge Established Patient Point Assignment: 105 Established Patient Point Charge: EP Level 3 (80-115)
== END 2024-11-20 14:25 | disposition home or self-care (01) ==
LOC: HODSOBC 13:06
PROVIDERS: PCP Obstetrics & Gynecology; Referring Provider Obstetrics & Gynecology; Supervising Provider Obstetrics & Gynecology; Visit Provider Obstetrics & Gynecology
DX: O09.93 Supervision of high risk pregnancy, unspecified, third trimester (principal); O41.03X0 Oligohydramnios, third trimester, not applicable or unspecified; Z3A.34 34 weeks gestation of pregnancy
CPT/HCPCS: 99213; G0463

== ENCOUNTER 2024-11-24 09:04 | Outpatient (AMB) | payer MEDICAID, SELFPAY ==
[2024-11-24 09:20] VITALS: BP 109/68; PULSE 85; RESP 16; TEMP 35.7; O2SAT 99; BMI 29.7
--- NOTE | 2024-11-24 09:20 | OBCLNT_ITS ---
Vital Signs 11/24/24 09:20 Height 1.55 m Height Method Stated Weight 71.384 kg Weight Measurement Method Standing Scale BMI 29.7 BP 109/68 Blood Pressure Source Automatic Cuff Blood Pressure Location Left Upper Arm Position Sitting Respiration 16 Pulse 85 Pulse Source Monitor Temp 96.3 F L Temp Source Oral Pulse Oximetry (%) 99 Oxygen Delivery Method Room Air Allergies/Home Meds Allergies & Medications Allergies No Known Allergies Allergy (Verified 12/01/24 09:55) Medication Reconciliation albuterol sulfate 90 mcg/actuation aerosol inhaler 4 inh inhalation Q6H PRN shortness of breath or wheezing 30 days #8.5 grams 11/25/24 [Rx] Intake Visit Data Collection New Patient or Established: Established Patient (seen at [facility] within 3 years) Reason for Visit:: OBC Seen by Clinical Staff ONLY (RN/MA): No 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 1. Little interest or pleasure in doing things: not at all 2. Feeling down, depressed, or hopeless: not at all Total score: 0 PHQ-9 3. Trouble falling or staying asleep, or sleeping too much: Not at all 4. Feeling tired or having little energy: Not at all 5. Poor appetite or overeating: Not at all 6. Feeling bad about yourself - or that you are a failure or have let yourself or your family down: Not at all 7. Trouble concentrating on things, such as reading the newspaper or watching television: Not at all 8. Moving or speaking so slowly that other people could have noticed? - Or the opposite - being so fidgety or restless that you have been moving around a lot more than usual: not at all 9. Thoughts that you would be better off or of hurting yourself in some way: Not at all Total score: 0 If you checked off any problems, how difficult have these problems made it for you to do your work, take care of things at home, or get along with other people?: not difficult at all Source: Developed by Drs. Juwan Brock, Cindy Girard, Khoi Moura and colleagues, with an educational lamberto from [employer]. Depression screen completed yes Social History Living Situation History Marital Status: Lives With: Family Housing: House Tobacco History Smoking Status: Never smoker Second Hand Smoke Exposure: No Alcohol History Alcohol Intake: Current Substance Use History Substance Use: NONE Domestic Abuse History Do You Feel Safe at Home: Yes Past Medical History Past Medical History Have you ever been diagnosed with any of the following: Neurological Problems Cerebrovascular Accident (CVA): No Transient Ischemic Attacks (TIA): No Dementia: No Alzheimer's Disease: No Parkinson's Disease: No Brain Tumor: No Meningitis: No Seizures: No Epilepsy: No Multiple Sclerosis: No Cerebral Palsy: No Amyotrophic Lateral Sclerosis (ALS/Kelsey Gehrig's): No Guillain-[place] Syndrome: No Spina Bifida: No Paralysis: No Peripheral Neuropathy: No Perez's Palsy: No Subdural Hematoma: No Migraine: No Head Trauma: No Spinal Cord Injury: No Traumatic Brain Injury: No Cardiology Problems Myocardial Infarction: No Cardiac Arrhythmia: No Atrial Fibrillation: No Angina: No Heart Murmur: No Coronary Artery Disease: No Atherosclerotic Heart Disease: No Peripheral Vascular Disease: No Hypercholesterolemia: No Aneurysm: No Congestive Heart Failure: No Congenital Heart Disease: No Valvular Heart Disease: No Rheumatic Fever: No Cardiomyopathy: No Edema: No Pericarditis: No Cellulitis: No Deep Vein Thrombosis: No Hypertension: No Hypotension: No Varicose Veins: No Respiratory Problems Chronic Obstructive Pulmonary Disease (COPD): No Asthma: Yes (Controlled asthma) Bronchitis: No Emphysema: No Pneumonia: No Pulmonary Fibrosis: No Tuberculosis: No Pulmonary Embolism: No Pulmonary Edema: No Sleep Apnea: No CPAP Dependent: No Respiratory Aspiration: No Dyspnea: No Orthopnea: No Hx Cough: No Cough: No Wheezing: No Chest Deformities: No Smoking: No Smoking Cessation Counseling: No Smoking Exposure: No Tobacco Use: No Clubbing: No Exposure to Respiratory Irritants: No Intubation: No Stomache/Intestinal Problems Liver Cancer: No Hepatitis: No Cirrhosis: No Pancreatitis: No Celiac Disease: No Gall Bladder Disease: No Gastrointestinal Bleed: No Esophageal Varices: No Choi's Esophagus: No Colitis: No Ulcerative Colitis: No Diverticulitis: No Diverticulosis: No Ulcer: No Colorectal Cancer: No Irritable Bowel: No Crohn's Disease: No Obstructive Bowel: No Hiatal Hernia: No Hemorrhoids: No Gastroesophageal Reflux Disease: No Obesity: No Genital/Urinary Problems Renal Disease: No Kidney Stones: No Polycystic Kidney Disease: No Neurogenic Bladder: No Inguinal Hernia: No Dialysis: No Prostate Cancer: No Benign Prostatic Hyperplasia: No Reproductive Problems Breast Cancer: No Endometriosis: Yes Genital Herpes: No Gonorrhea: No Pelvic Inflammatory Disease: No Previous Pregnancies: No Syphilis: No Testicular Cancer: No Uterine Prolapse: No Musculoskeletal Problems Muscular Dystrophy: No Myasthenia Gravis: No Marfan's Syndrome: No Bone Cancer: No Arthritis: No Rheumatoid Arthritis: No Osteoporosis: No Degenerative Disk Disease: No Gout: No Scoliosis: No Carpal Tunnel Syndrome: No Fibromyalgia: No Fractures: No Degenerative Joint Disease: No Osteomyelitis: No Poliovirus: No Head,Eye,Nose,Throat Problems Cataracts: No Glaucoma: No Blind: No Retinal Detachment: No Macular Degeneration: No Chronic Ear Infections: No Deafness: No Eye Prosthesis: No Endocrine Problems Diabetes Mellitus Type 1: No Diabetes Mellitus Type 2: No Hypoglycemia: No Kinza's Syndrome: No Jacek's Disease: No Hyperthyroidism: No Hypothyroidism: No Parathyroid Disease: No Pituitary Disease: No Systemic Lupus Erythematosus: No Syndrome of Inappropriate Antidiuretic Hormone: No Adrenal Disease: No Graves' Disease: No Blood Problems Anemia: No Leukemia: No Hemophilia: No Thalassemia: No Sickle Cell Disease: No Clotting Problems: No Psychologic Problems Schizophrenia: No Recreational Drug Use: No Bipolar Disorder: No Depression: No Anxiety: No Behavior Problems: No Self-Mutilation: No Attention Deficit Disorder: No Attention Deficit Hyperactivity Disorder: No Depression: No Post Traumatic Stress Disorder: No Eating Disorder: No Other Problems Hospitalization: No Down Syndrome: No Autism: No Developmental Delay: No Shingles: No Falls: No Blood Transfusions: No Blood Transfusion Reaction: No Anesthesia Reactions: No Organ Transplant: No Chemotherapy: No Radiation Therapy: No Hyperbaric Therapy: No MRSA: No Vancomycin-Resistant Enterococci: No Human Immunodeficiency Virus (HIV): No Chicken Pox: Yes Measles: No Mumps: No Rubella ([place] Measles): No Pertussis: No Clostridium Difficile: No Cancer: No Cervical Cancer: No Lung Cancer: No Ovarian Cancer: No Surgical History Carotid Endarterectomy: No Coronary Artery Bypass Graft: No Valve Replacement: No Hysterectomy: No Pacemaker: No Thyroidectomy: No History of Present Illness HPI Narrative Ellie Bustos, a patient, presents for a routine check-up. She reports no contractions and states the baby has been active. Since her last visit on Sunday, Ellie has noticed swelling in her feet, though she mentions it has decreased slightly. She denies any bleeding, cramping, spotting, nausea, or vomiting. Ellie's mother is planning to visit for the , arriving on Sunday and departing on Sunday. Review of Systems Review of Systems Systems Reviewed: All systems reviewed, normal except as documented Visit ESTELA Calculator Estimated Delivery Date Method Current WG Current Estimate 12/17/24 LMP (Certain) 38w 2d Initial Weight: Not Recorded Date -?-?-?-?-?-?-?-?-?-?-?-?- EGA Weight Edema CTX Effacement BP Fundal ht Pres Dilation Effacement Station Visit Note Alb Glu FHR Mov 10/14/24 -?-?-?-?-?-?-?-?-?-?-?-?- 30w 6d 69.456 kg 106/70 31 cephalic 155 active 10/28/24 -?-?-?-?-?-?-?-?-?-?-?-?- 32w 6d 68.039 kg 94/61 33 cephalic 150 active 11/20/24 -?-?-?-?-?-?-?-?-?-?-?-?- 36w 1d 70.817 kg 113/74 36 cephalic No CTX/LOF/VB, reports good FM+ GBS done 145 active 12/01/24 -?-?-?-?-?-?-?-?-?-?-?-?- 37w 5d 72.235 kg 110/79 Eunice Bustos, a patient, presents for a routine check-up. She reports no contractions and states the baby has been active. Since her last visit on Sunday, Ellie has noticed swelling in her feet, though she mentions it has decreased slightly. She denies any bleeding, cramping, spotting, nausea, or vomiting. Ellie's mother is planning to visit for the , arriving on Sunday and departing on Sunday. No contractions/ LOF/VB, reports good FM . Schedule follow-up appointment for next week. Perform cervical check and memb keron sweep at next visit. Patient instructed to elevate feet on a thin pillow while sleeping to reduce swelling and to keep moving calf muscles to promote fluid drainage. Compression socks recommended for use while walking. Patient advised she can request the doctor be called if she presents to the hospital when he is not injection machine operator No CTX/LOF/VB, reports good FM+ Diagnostic Test Results and Labs: - Blood group: O positive, antibody scre en negative - Rubella: Non-immune - RPR: Non-reactive - Hepatitis B surface antigen: Negative - Hepatitis C: Negative - HIV: Negative - Gonorrhea and chlamydia: Negative - NIPT (Non-Invasive Testing): Negative times three - ER testing: Normal (specific tests not specified) Ellie Bustos, a patient, present s for a routine check-up. She reports no contractions and states the baby has been active. Since her last visit on Sunday, Ellie has noticed swelling in her feet, though she mentions it has decreased slightly. She denies any bleeding, cramping, spotting, nausea, or vomiting. Ellie's mother is planning to visit for the , arriving on Sunday and departing on Sunday. No contractions/ LOF/VB, reports good FM . Schedule follow-up appointment for next week. Perform cervical check and membrane sweep at next visit. Patient instructed to elevate feet on a thin pillow while sleeping to reduce swelling and to keep moving calf muscles to promote fluid drainage. Compression socks recommended for use while walking. Patient advised she can request the doctor be called if she presents to the hospital when he is not injection machine operator 140 active Exam General Limitations: no limitations General Appearance: alert, in no apparent distress, comfortable, cooperative, healthy appearing, well developed and well groomed Head Head exam: atraumatic, normocephalic and normal inspection Abdominal Abdominal exam: Present soft and normal bowel sounds Psych Psychiatric exam: Present normal affect and normal mood Skin Skin exam: Present warm, dry, intact and normal color Assessment & Plan Diagnosis / Problem List (1) Supervision of high risk , unspecified, third trimester: Status: Acute Plan Patient is approximately 2 weeks from her due date. Group B Streptococcus (GBS) screening is negative. heart rate is 153 bpm, which is within normal range. Patient may be experiencing [place] contractions, which are considered normal at this stage of . Plan: - Continue with short, frequent walks (10 minutes) throughout the day - Recommend use of exercise ball for sitting and bouncing to encourage head engagement - Advise patient to prepare a hospital bag for immediate access when labor begins - Schedule follow-up appointment in one week Educated the patient on labor signs, including regular contractions, lower back pain, and changes in vaginal discharge. Advised avoiding heavy lifting and getting adequate rest. Instructed to contact the office immediately if any signs occur. Discussed the importance of a balanced diet rich in folic acid, iron, and calcium, and provided a list of recommended and to-avoid foods. Emphasized avoiding high-sugar foods to reduce gestational diabetes risk. Office Procedures OB Clinic LOC & Office Proc's Nursing/Assessment Patient Status: Established Patient OB Clinic Nursing Assessment: BP Monitoring, Medication Reconciliation, Update PMH in EMR and Vital Signs OB Clinic Coordination of Care: Consent,records obtained, informed consent, Education Simp Pt/Fam and Staff clarify orders Special Needs: Heart tones Established Patient Charge Established Patient Point Assignment: 105 Established Patient Point Charge: EP Level 3 (80-115)
== END 2024-11-24 09:27 | disposition home or self-care (01) ==
LOC: HODSOBC 09:04
PROVIDERS: PCP Obstetrics & Gynecology; Referring Provider Obstetrics & Gynecology; Supervising Provider Obstetrics & Gynecology; Visit Provider Obstetrics & Gynecology
DX: O09.93 Supervision of high risk pregnancy, unspecified, third trimester (principal); Z3A.36 36 weeks gestation of pregnancy
CPT/HCPCS: 99213; G0463

== ENCOUNTER 2024-12-01 09:33 | Outpatient (AMB) | payer MEDICAID, SELFPAY ==
--- NOTE | 2024-12-01 09:51 | AMB.OBVISIT ---
Vital Signs 12/01/24 09:54 Height 1.55 m Height Method Stated Weight 72.235 kg Weight Measurement Method Standing Scale BMI 30.0 BP 110/79 Blood Pressure Source Automatic Cuff Blood Pressure Location Left Upper Arm Position Sitting Respiration 16 Pulse 84 Pulse Source Monitor Temp 97.6 F Temp Source Oral Pulse Oximetry (%) 97 Oxygen Delivery Method Room Air Allergies/Home Meds Allergies & Medications Allergies No Known Allergies Allergy (Verified 12/01/24 09:55) Intake Visit Data Collection New Patient or Established: Established Patient (seen at [facility] within 3 years) Reason for Visit:: CARE Seen by Clinical Staff ONLY (RN/MA): No 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 1. Little interest or pleasure in doing things: not at all 2. Feeling down, depressed, or hopeless: not at all Total score: 0 PHQ-9 3. Trouble falling or staying asleep, or sleeping too much: Not at all 4. Feeling tired or having little energy: Not at all 5. Poor appetite or overeating: Not at all 6. Feeling bad about yourself - or that you are a failure or have let yourself or your family down: Not at all 7. Trouble concentrating on things, such as reading the newspaper or watching television: Not at all 8. Moving or speaking so slowly that other people could have noticed? - Or the opposite - being so fidgety or restless that you have been moving around a lot more than usual: not at all 9. Thoughts that you would be better off or of hurting yourself in some way: Not at all Total score: 0 Source: Developed by Drs. Juwan Brock, Cindy Girard, Khoi Moura and colleagues, with an educational lamberto from [employer]. Depression screen completed yes Social History Living Situation History Lives With: Family Housing: House Tobacco History Smoking Status: Never smoker Second Hand Smoke Exposure: No Alcohol History Alcohol Intake: Current Substance Use History Substance Use: NONE Domestic Abuse History Do You Feel Safe at Home: Yes Past Medical History Past Medical History Have you ever been diagnosed with any of the following: Neurological Problems Cerebrovascular Accident (CVA): No Transient Ischemic Attacks (TIA): No Dementia: No Alzheimer's Disease: No Parkinson's Disease: No Brain Tumor: No Meningitis: No Seizures: No Epilepsy: No Multiple Sclerosis: No Cerebral Palsy: No Amyotrophic Lateral Sclerosis (ALS/Kelsey Gehrig's): No Guillain-Irvington Syndrome: No Spina Bifida: No Paralysis: No Peripheral Neuropathy: No Perez's Palsy: No Subdural Hematoma: No Migraine: No Head Trauma: No Spinal Cord Injury: No Traumatic Brain Injury: No Cardiology Problems Myocardial Infarction: No Cardiac Arrhythmia: No Atrial Fibrillation: No Angina: No Heart Murmur: No Coronary Artery Disease: No Atherosclerotic Heart Disease: No Peripheral Vascular Disease: No Hypercholesterolemia: No Aneurysm: No Congestive Heart Failure: No Congenital Heart Disease: No Valvular Heart Disease: No Rheumatic Fever: No Cardiomyopathy: No Edema: No Pericarditis: No Cellulitis: No Deep Vein Thrombosis: No Hypertension: No Hypotension: No Varicose Veins: No Respiratory Problems Chronic Obstructive Pulmonary Disease (COPD): No Asthma: Yes (Controlled asthma) Bronchitis: No Emphysema: No Pneumonia: No Pulmonary Fibrosis: No Tuberculosis: No Pulmonary Embolism: No Pulmonary Edema: No Sleep Apnea: No CPAP Dependent: No Respiratory Aspiration: No Dyspnea: No Orthopnea: No Hx Cough: No Cough: No Wheezing: No Chest Deformities: No Smoking: No Smoking Cessation Counseling: No Smoking Exposure: No Tobacco Use: No Clubbing: No Exposure to Respiratory Irritants: No Intubation: No Stomache/Intestinal Problems Liver Cancer: No Hepatitis: No Cirrhosis: No Pancreatitis: No Celiac Disease: No Gall Bladder Disease: No Gastrointestinal Bleed: No Esophageal Varices: No Choi's Esophagus: No Colitis: No Ulcerative Colitis: No Diverticulitis: No Diverticulosis: No Ulcer: No Colorectal Cancer: No Irritable Bowel: No Crohn's Disease: No Obstructive Bowel: No Hiatal Hernia: No Hemorrhoids: No Gastroesophageal Reflux Disease: No Obesity: No Genital/Urinary Problems Renal Disease: No Kidney Stones: No Polycystic Kidney Disease: No Neurogenic Bladder: No Inguinal Hernia: No Dialysis: No Reproductive Problems Breast Cancer: No Endometriosis: Yes Genital Herpes: No Gonorrhea: No Pelvic Inflammatory Disease: No Previous Pregnancies: No Syphilis: No Uterine Prolapse: No Musculoskeletal Problems Muscular Dystrophy: No Myasthenia Gravis: No Marfan's Syndrome: No Bone Cancer: No Arthritis: No Rheumatoid Arthritis: No Osteoporosis: No Degenerative Disk Disease: No Gout: No Scoliosis: No Carpal Tunnel Syndrome: No Fibromyalgia: No Fractures: No Degenerative Joint Disease: No Osteomyelitis: No Poliovirus: No Head,Eye,Nose,Throat Problems Cataracts: No Glaucoma: No Blind: No Retinal Detachment: No Macular Degeneration: No Chronic Ear Infections: No Deafness: No Eye Prosthesis: No Endocrine Problems Diabetes Mellitus Type 1: No Diabetes Mellitus Type 2: No Hypoglycemia: No Tekonsha's Syndrome: No Bacon's Disease: No Hyperthyroidism: No Hypothyroidism: No Parathyroid Disease: No Pituitary Disease: No Systemic Lupus Erythematosus: No Syndrome of Inappropriate Antidiuretic Hormone: No Adrenal Disease: No Graves' Disease: No Blood Problems Anemia: No Leukemia: No Hemophilia: No Thalassemia: No Sickle Cell Disease: No Clotting Problems: No Psychologic Problems Schizophrenia: No Recreational Drug Use: No Bipolar Disorder: No Depression: No Anxiety: No Behavior Problems: No Self-Mutilation: No Attention Deficit Disorder: No Attention Deficit Hyperactivity Disorder: No Depression: No Post Traumatic Stress Disorder: No Eating Disorder: No Other Problems Hospitalization: No Down Syndrome: No Autism: No Developmental Delay: No Shingles: No Falls: No Blood Transfusions: No Blood Transfusion Reaction: No Anesthesia Reactions: No Organ Transplant: No Chemotherapy: No Radiation Therapy: No Hyperbaric Therapy: No MRSA: No Vancomycin-Resistant Enterococci: No Human Immunodeficiency Virus (HIV): No Chicken Pox: Yes Measles: No Mumps: No Rubella ([place] Measles): No Pertussis: No Clostridium Difficile: No Cancer: No Cervical Cancer: No Lung Cancer: No Ovarian Cancer: No Surgical History Carotid Endarterectomy: No Coronary Artery Bypass Graft: No Valve Replacement: No Hysterectomy: No Pacemaker: No Thyroidectomy: No History of Present Illness HPI Narrative Ellie Bustos, a patient, presents for a routine check-up. She reports no contractions and states the baby has been active. Since her last visit on Sunday, Ellie has noticed swelling in her feet, though she mentions it has decreased slightly. She denies any bleeding, cramping, spotting, nausea, or vomiting. Ellie's mother is planning to visit for the , arriving on Sunday and departing on Sunday. Visit OB Visit Log OB Flowsheet Initial Weight: Not Recorded Date <del>?</del> EGA Weight Edema CTX Effacement BP Fundal ht Pres Dilation Effacement Station Visit Note Alb Glu FHR Mov 10/14/24 <del>?</del> 30w 6d 69.456 kg 106/70 31 cephalic 155 active 10/28/24 <del>?</del> 32w 6d 68.039 kg 94/61 33 cephalic 150 active 11/20/24 <del>?</del> 36w 1d 70.817 kg 113/74 36 cephalic No CTX/LOF/VB, reports good FM+ GBS done 145 active 12/01/24 <del>?</del> 37w 5d 72.235 kg 110/79 Ellie Bustos, a patient, presents for a routine check-up. She reports no contractions and states the baby has been active. Since her last visit on Sunday, Ellie has noticed swelling in her feet, though she mentions it has decreased slightly. She denies any bleeding, cramping, spotting, nausea, or vomiting. Ellie's mother is planning to visit for the , arriving on Sunday and departing on Sunday. No contractions/ LOF/VB, reports good FM. Schedule follow-up appointment for next week. Perform cervical check and membrane sweep at next visit. Patient instructed to elevate feet on a thin pillow while sleeping to reduce swelling and to keep moving calf muscles to promote fluid drainage. Compression socks recommended for use while walking. Patient advised she can request the doctor be called if she presents to the hospital when he is not obstetrics nurse practitioner No CTX/LOF/VB, reports good FM+ Diagnostic Test Results and Labs: - Blood group: O positive, antibody screen negative - Rubella: Non-immune - RPR: Non-reactive - Hepatitis B surface antigen: Negative - Hepatitis C: Negative - HIV: Negative - Gonorrhea and chlamydia: Negative - NIPT (Non-Invasive Testing): Negative times three - ER testing: Normal (specific tests not specified) Ellie Bustos, a patient, presents for a routine check-up. She reports no contractions and states the baby has been active. Since her last visit on Sunday, Ellie has noticed swelling in her feet, though she mentions it has decreased slightly. She denies any bleeding, cramping, spotting, nausea, or vomiting. Ellie's mother is planning to visit for the , arriving on Sunday and departing on Sunday. No contractions/ LOF/VB, reports good FM. Schedule follow-up appointment for next week. Perform cervical check and membrane sweep at next visit. Patient instructed to elevate feet on a thin pillow while sleeping to reduce swelling and to keep moving calf muscles to promote fluid drainage. Compression socks recommended for use while walking. Patient advised she can request the doctor be called if she presents to the hospital when he is not obstetrics nurse practitioner 140 active ESTELA Calculator Estimated Delivery Date Method Current WG Current Estimate 12/17/24 LMP (Certain) 38w 2d Assessment & Plan Diagnosis / Problem List (1) Supervision of high risk , unspecified, third trimester: Status: Acute Plan Schedule follow-up appointment for next week. Perform cervical check and membrane sweep at next visit. Patient instructed to elevate feet on a thin pillow while sleeping to reduce swelling and to keep moving calf muscles to promote fluid drainage. Compression socks recommended for use while walking. Patient advised she can request the doctor be called if she presents to the hospital when he is not obstetrics nurse practitioner. Doctor informed patient he will be unavailable in [place] on Sunday and Sunday. Educated the patient on labor signs, including regular contractions, lower back pain, and changes in vaginal discharge. Advised avoiding heavy lifting and getting adequate rest. Instructed to contact the office immediately if any signs occur. Discussed the importance of a balanced diet rich in folic acid, iron, and calcium, and provided a list of recommended and to-avoid foods. Emphasized avoiding high-sugar foods to reduce gestational diabetes risk. Encouraged hydration and frequent, small meals for energy.. Office Procedures OB Clinic LOC & Office Proc's Nursing/Assessment Patient Status: Established Patient OB Clinic Nursing Assessment: Medication Reconciliation, Update PMH in EMR and Vital Signs OB Clinic Coordination of Care: Complex Care and Chronic Disease 1-5, Consent,records obtained, informed consent, Education Simp Pt/Fam and Staff clarify orders Special Needs: Heart tones Established Patient Charge Established Patient Point Assignment: 115 Established Patient Point Charge: EP Level 3 (80-115)
[2024-12-01 09:54] VITALS: BP 110/79; PULSE 84; RESP 16; TEMP 36.4; O2SAT 97
== END 2024-12-01 10:06 | disposition home or self-care (01) ==
LOC: HODSOBC 09:33
PROVIDERS: PCP Obstetrics & Gynecology; Referring Provider Obstetrics & Gynecology; Supervising Provider Obstetrics & Gynecology; Visit Provider Obstetrics & Gynecology
DX: O09.893 Supervision of other high risk pregnancies, third trimester (principal); Z3A.37 37 weeks gestation of pregnancy; O12.03 Gestational edema, third trimester; Z78.9 Other specified health status
CPT/HCPCS: 99213; G0463

== ENCOUNTER 2024-12-03 10:06 | Outpatient (RCR) | payer MEDICAID, SELFPAY ==
--- NOTE | 2024-10-23 10:32 | XR_ITS ---
Examination: Biophysical profile, ultrasound Date and time of exam: October 23, 2024 1042 hours INDICATIONS: Low blood pressure today Technique: Multiple transabdominal sonographic images of the pelvis abdomen obtained. Attention is directed to the breathing movement, gross body movement, amniotic fluid volume and tone. Findings: Amniotic fluid index 6.7 cm Total biophysical profile is 8 of 8. breathing movement is 2. Gross body movement is 2. tone is 2. Qualitative amniotic fluid volume is 2 Impression: Biophysical profile is 8 of 8.
[2024-10-23 11:10] VITALS: BP 119/74; PULSE 89; RESP 16; TEMP 37.1
--- NOTE | 2024-10-30 10:08 | XR_ITS ---
Examination: Biophysical profile, ultrasound Date and time of exam: October 30, 2024, 10:52 AM Indications: Low blood pressure, diagnosis low amniotic fluid index Technique: Multiple transabdominal sonographic images of the pelvis abdomen obtained. Attention is directed to the breathing movement, gross body movement, amniotic fluid volume and tone. Findings: Amniotic fluid index 10.4 cm Total biophysical profile is 8 of 8. breathing movement is 2. Gross body movement is 2. tone is 2. Qualitative amniotic fluid volume is 2 Impression: Biophysical profile is 8 of 8.
[2024-10-30 11:08] VITALS: BP 117/65; PULSE 98; RESP 16; TEMP 36.4
--- NOTE | 2024-11-06 10:21 | XR_ITS ---
Examination: Biophysical profile, ultrasound Date and time of exam: November 06, 2024 1031 hours INDICATIONS: Diagnosis high risk , history low blood pressure Technique: Multiple transabdominal sonographic images of the pelvis abdomen obtained. Attention is directed to the breathing movement, gross body movement, amniotic fluid volume and tone. Findings: Amniotic fluid index 9.2 cm Total biophysical profile is 8 of 8. breathing movement is 2. Gross body movement is 2. tone is 2. Qualitative amniotic fluid volume is 2 Impression: Biophysical profile is 8 of 8.
[2024-11-06 10:57] VITALS: BP 107/65; PULSE 83; RESP 16; TEMP 36.1
--- NOTE | 2024-11-12 10:17 | XR_ITS ---
Examination: Biophysical profile, ultrasound Date and time of exam: November 12, 2024 1057 hours INDICATIONS: Diagnosis high risk , history low blood pressure Technique: Multiple transabdominal sonographic images of the pelvis abdomen obtained. Attention is directed to the breathing movement, gross body movement, amniotic fluid volume and tone. Findings: Amniotic fluid index 9.3 cm Total biophysical profile is 8 of 8. breathing movement is 2. Gross body movement is 2. tone is 2. Qualitative amniotic fluid volume is 2 Impression: Biophysical profile is 8 of 8.
[2024-11-12 11:09] VITALS: BP 120/68; PULSE 86; RESP 16; TEMP 36.7
--- NOTE | 2024-11-19 13:19 | XR_ITS ---
Examination: Biophysical profile, ultrasound Date and time of exam: November 19, 2024 1355 hours INDICATIONS: Diagnosis high risk , diagnosis low blood pressure Technique: Multiple transabdominal sonographic images of the pelvis abdomen obtained. Attention is directed to the breathing movement, gross body movement, amniotic fluid volume and tone. Findings: Amniotic fluid index 9.8 cm Total biophysical profile is 8 of 8. breathing movement is 2. Gross body movement is 2. tone is 2. Qualitative amniotic fluid volume is 2 Impression: Biophysical profile is 8 of 8.
[2024-11-19 14:38] VITALS: BP 124/64; PULSE 79; RESP 18; TEMP 36.6
--- NOTE | 2024-11-26 10:12 | XR_ITS ---
Examination: Biophysical profile, ultrasound Date and time of exam: November 19, 2024 1350 hrs. Indications: Diagnosis high risk , diagnosis low blood pressure Technique: Multiple transabdominal sonographic images of the pelvis abdomen obtained. Attention is directed to the breathing movement, gross body movement, amniotic fluid volume and tone. Findings: Amniotic fluid index 10.1 Total biophysical profile is 8 of 8. breathing movement is 2. Gross body movement is 2. tone is 2. Qualitative amniotic fluid volume is 2 Impression: Biophysical profile is 8 of 8.
[2024-11-26 11:01] VITALS: BP 114/72; PULSE 93; RESP 18; TEMP 36.7
--- NOTE | 2024-12-03 10:11 | XR_ITS ---
Examination: Biophysical profile, ultrasound Date and time of exam: December 03, 2024 1017 hours INDICATIONS: Diagnosis high risk , diagnosis hypotension Technique: Multiple transabdominal sonographic images of the pelvis abdomen obtained. Attention is directed to the breathing movement, gross body movement, amniotic fluid volume and tone. Findings: Amniotic fluid index 10.2 cm Total biophysical profile is 8 of 8. breathing movement is 2. Gross body movement is 2. tone is 2. Qualitative amniotic fluid volume is 2 Impression: Biophysical profile is 8 of 8.
[2024-12-03 10:53] VITALS: BP 116/67; PULSE 83; RESP 18; TEMP 36.8
== END 2024-12-03 23:59 | disposition home or self-care (01) ==
LOC: S4S1 10:06
PROVIDERS: PCP Family Medicine; Referring Provider Obstetrics & Gynecology; Visit Provider Obstetrics & Gynecology
DX: O09.93 Supervision of high risk pregnancy, unspecified, third trimester (principal); Z3A.38 38 weeks gestation of pregnancy
CPT/HCPCS: 59025; 76819

== ENCOUNTER 2024-12-08 10:37 | Outpatient (AMB) | payer MEDICAID, SELFPAY ==
[2024-12-08 11:03] VITALS: BP 118/83; PULSE 95; RESP 16; TEMP 36.8; O2SAT 97; BMI 30.4
--- NOTE | 2024-12-08 11:03 | AMB.OBVISIT ---
Vital Signs 12/08/24 11:03 Height 1.55 m Height Method Stated Weight 73.142 kg Weight Measurement Method Standing Scale BMI 30.4 BP 118/83 Blood Pressure Source Automatic Cuff Blood Pressure Location Left Upper Arm Position Sitting Respiration 16 Pulse 95 Pulse Source Monitor Temp 98.2 F Temp Source Oral Pulse Oximetry (%) 97 Oxygen Delivery Method Room Air Allergies/Home Meds Allergies & Medications Allergies No Known Allergies Allergy (Verified 12/08/24 11:05) Medication Reconciliation albuterol sulfate 90 mcg/actuation aerosol inhaler 4 inh inhalation Q6H PRN shortness of breath or wheezing 30 days #8.5 grams 11/25/24 [Rx Confirmed 12/08/24] Intake Visit Data Collection New Patient or Established: Established Patient (seen at [facility] within 3 years) Reason for Visit:: CARE Seen by Clinical Staff ONLY (RN/MA): No Pickling 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 1. Little interest or pleasure in doing things: not at all 2. Feeling down, depressed, or hopeless: not at all Total score: 0 PHQ-9 3. Trouble falling or staying asleep, or sleeping too much: Not at all 4. Feeling tired or having little energy: Not at all 5. Poor appetite or overeating: Not at all 6. Feeling bad about yourself - or that you are a failure or have let yourself or your family down: Not at all 7. Trouble concentrating on things, such as reading the newspaper or watching television: Not at all 8. Moving or speaking so slowly that other people could have noticed? - Or the opposite - being so fidgety or restless that you have been moving around a lot more than usual: not at all 9. Thoughts that you would be better off or of hurting yourself in some way: Not at all Total score: 0 Source: Developed by Drs. Juwan Brock, Cindy Girard, Khoi Moura and colleagues, with an educational lamberto from [employer]. Depression screen completed yes Social History Living Situation History Lives With: Family Housing: House Tobacco History Smoking Status: Never smoker Second Hand Smoke Exposure: No Alcohol History Alcohol Intake: Current Substance Use History Substance Use: NONE Domestic Abuse History Do You Feel Safe at Home: Yes Past Medical History Past Medical History Have you ever been diagnosed with any of the following: Neurological Problems Cerebrovascular Accident (CVA): No Transient Ischemic Attacks (TIA): No Dementia: No Alzheimer's Disease: No Parkinson's Disease: No Brain Tumor: No Meningitis: No Seizures: No Epilepsy: No Multiple Sclerosis: No Cerebral Palsy: No Amyotrophic Lateral Sclerosis (ALS/Kelsey Gehrig's): No Guillain-Kerkhoven Syndrome: No Spina Bifida: No Paralysis: No Peripheral Neuropathy: No Perez's Palsy: No Subdural Hematoma: No Migraine: No Head Trauma: No Spinal Cord Injury: No Traumatic Brain Injury: No Cardiology Problems Myocardial Infarction: No Cardiac Arrhythmia: No Atrial Fibrillation: No Angina: No Heart Murmur: No Coronary Artery Disease: No Atherosclerotic Heart Disease: No Peripheral Vascular Disease: No Hypercholesterolemia: No Aneurysm: No Congestive Heart Failure: No Congenital Heart Disease: No Valvular Heart Disease: No Rheumatic Fever: No Cardiomyopathy: No Edema: No Pericarditis: No Cellulitis: No Deep Vein Thrombosis: No Hypertension: No Hypotension: No Varicose Veins: No Respiratory Problems Chronic Obstructive Pulmonary Disease (COPD): No Asthma: Yes (Controlled asthma) Bronchitis: No Emphysema: No Pneumonia: No Pulmonary Fibrosis: No Tuberculosis: No Pulmonary Embolism: No Pulmonary Edema: No Sleep Apnea: No CPAP Dependent: No Respiratory Aspiration: No Dyspnea: No Orthopnea: No Hx Cough: No Cough: No Wheezing: No Chest Deformities: No Smoking: No Smoking Cessation Counseling: No Smoking Exposure: No Tobacco Use: No Clubbing: No Exposure to Respiratory Irritants: No Intubation: No Stomache/Intestinal Problems Liver Cancer: No Hepatitis: No Cirrhosis: No Pancreatitis: No Celiac Disease: No Gall Bladder Disease: No Gastrointestinal Bleed: No Esophageal Varices: No Choi's Esophagus: No Colitis: No Ulcerative Colitis: No Diverticulitis: No Diverticulosis: No Ulcer: No Colorectal Cancer: No Irritable Bowel: No Crohn's Disease: No Obstructive Bowel: No Hiatal Hernia: No Hemorrhoids: No Gastroesophageal Reflux Disease: No Obesity: No Genital/Urinary Problems Renal Disease: No Kidney Stones: No Polycystic Kidney Disease: No Neurogenic Bladder: No Inguinal Hernia: No Dialysis: No Reproductive Problems Breast Cancer: No Endometriosis: Yes Genital Herpes: No Gonorrhea: No Pelvic Inflammatory Disease: No Previous Pregnancies: No Syphilis: No Uterine Prolapse: No Musculoskeletal Problems Muscular Dystrophy: No Myasthenia Gravis: No Marfan's Syndrome: No Bone Cancer: No Arthritis: No Rheumatoid Arthritis: No Osteoporosis: No Degenerative Disk Disease: No Gout: No Scoliosis: No Carpal Tunnel Syndrome: No Fibromyalgia: No Fractures: No Degenerative Joint Disease: No Osteomyelitis: No Poliovirus: No Head,Eye,Nose,Throat Problems Cataracts: No Glaucoma: No Blind: No Retinal Detachment: No Macular Degeneration: No Chronic Ear Infections: No Deafness: No Eye Prosthesis: No Endocrine Problems Diabetes Mellitus Type 1: No Diabetes Mellitus Type 2: No Hypoglycemia: No Kinza's Syndrome: No Greenbrier's Disease: No Hyperthyroidism: No Hypothyroidism: No Parathyroid Disease: No Pituitary Disease: No Systemic Lupus Erythematosus: No Syndrome of Inappropriate Antidiuretic Hormone: No Adrenal Disease: No Graves' Disease: No Blood Problems Anemia: No Leukemia: No Hemophilia: No Thalassemia: No Sickle Cell Disease: No Clotting Problems: No Psychologic Problems Schizophrenia: No Recreational Drug Use: No Bipolar Disorder: No Depression: No Anxiety: No Behavior Problems: No Self-Mutilation: No Attention Deficit Disorder: No Attention Deficit Hyperactivity Disorder: No Depression: No Post Traumatic Stress Disorder: No Eating Disorder: No Other Problems Hospitalization: No Down Syndrome: No Autism: No Developmental Delay: No Shingles: No Falls: No Blood Transfusions: No Blood Transfusion Reaction: No Anesthesia Reactions: No Organ Transplant: No Chemotherapy: No Radiation Therapy: No Hyperbaric Therapy: No MRSA: No Vancomycin-Resistant Enterococci: No Human Immunodeficiency Virus (HIV): No Chicken Pox: Yes Measles: No Mumps: No Rubella (Kazakh Measles): No Pertussis: No Clostridium Difficile: No Cancer: No Cervical Cancer: No Lung Cancer: No Ovarian Cancer: No Surgical History Carotid Endarterectomy: No Coronary Artery Bypass Graft: No Valve Replacement: No Hysterectomy: No Pacemaker: No Thyroidectomy: No History of Present Illness WILMA Costado, a patient, presents for a routine check-up. She reports no contractions and states the baby has been active. Patient is complaining of leakage of fluid starting yesterday morning, she denies that it has any odor and does not smell like urine Since her last visit on Sunday, Ellie has noticed swelling in her feet, though she mentions it has decreased slightly. She denies any bleeding, cramping, spotting, nausea, or vomiting. Ellie's mother is planning to visit for the , arriving on Sunday and departing on Sunday. Occasional contractions / LOF as above/denies any VB, reports good FM No DUGGAN/VC/RUQ/Epig pain Review of Systems Review of Systems Systems Reviewed: All systems reviewed, normal except as documented Visit OB Visit Log OB Flowsheet Initial Weight: Not Recorded Date <del>?</del> EGA Weight Edema CTX Effacement BP Fundal ht Pres Dilation Effacement Station Visit Note Alb Glu FHR Mov 10/14/24 <del>?</del> 30w 6d 69.456 kg 106/70 31 cephalic 155 active 10/28/24 <del>?</del> 32w 6d 68.039 kg 94/61 33 cephalic 150 active 11/20/24 <del>?</del> 36w 1d 70.817 kg 113/74 36 cephalic No CTX/LOF/VB, reports good FM+ GBS done 145 active 12/01/24 <del>?</del> 37w 5d 72.235 kg 110/79 Ellie Bustos, a patient, presents for a routine check-up. She reports no contractions and states the baby has been active. Since her last visit on Sunday, Ellie has noticed swelling in her feet, though she mentions it has decreased slightly. She denies any bleeding, cramping, spotting, nausea, or vomiting. Ellie's mother is planning to visit for the , arriving on Sunday and departing on Sunday. No contractions/ LOF/VB, reports good FM. Schedule follow-up appointment for next week. Perform cervical check and membrane sweep at next visit. Patient instructed to elevate feet on a thin pillow while sleeping to reduce swelling and to keep moving calf muscles to promote fluid drainage. Compression socks recommended for use while walking. Patient advised she can request the doctor be called if she presents to the hospital when he is not independent contractor No CTX/LOF/VB, reports good FM+ Diagnostic Test Results and Labs: - Blood group: O positive, antibody screen negative - Rubella: Non-immune - RPR: Non-reactive - Hepatitis B surface antigen: Negative - Hepatitis C: Negative - HIV: Negative - Gonorrhea and chlamydia: Negative - NIPT (Non-Invasive Testing): Negative times three - ER testing: Normal (specific tests not specified) Ellie Bustos, a patient, presents for a routine check-up. She reports no contractions and states the baby has been active. Since her last visit on Sunday, Ellie has noticed swelling in her feet, though she mentions it has decreased slightly. She denies any bleeding, cramping, spotting, nausea, or vomiting. Ellie's mother is planning to visit for the [facility] , arriving on Sunday and departing on Sunday. No contractions/ LOF/VB, reports good FM. Schedule follow-up appointment for next week. Perform cervical check and membrane sweep at next visit. Patient instructed to elevate feet on a thin pillow while sleeping to reduce swelling and to keep moving calf muscles to promote fluid drainage. Compression socks recommended for use while walking. Patient advised she can request the doctor be called if she presents to the hospital when he is not independent contractor 140 active 12/08/24 <del>?</del> 38w 5d 73.142 kg 118/83 Occasional contractions / LOF as above/denies any VB, reports good FM No DUGGAN/VC/RUQ/Epig pain. Occasional contractions / LOF as above/denies any VB, reports good FM. No DUGGAN/VC/RUQ/Epig pain. Diagnostic Test Results and Labs: - Blood group: O positive, antibody screen negative - Rubella: Non-immune - RPR: Non-reactive - Hepatitis B surface antigen: Negative - Hepatitis C: Negative - HIV: Negative - Gonorrhea and chlamydia: Negative - NIPT (Non-Invasive Testing): Negative times three. GBS neg. 140 active ESTELA Calculator Estimated Delivery Date Method Current WG Current Estimate 12/17/24 LMP (Certain) 38w 5d Exam General Limitations: no limitations General Appearance: alert, in no apparent distress, comfortable, cooperative, healthy appearing, well developed and well groomed Head Head exam: atraumatic, normocephalic and normal inspection Chest Chest inspection: Present normal inspection and symmetric chest wall rise Abdominal Abdominal exam: Present soft and normal bowel sounds Psych Psychiatric exam: Present normal affect and normal mood Skin Skin exam: Present warm, dry, intact and normal color Assessment & Plan Diagnosis / Problem List (1) Oligohydramnios antepartum: Status: Acute (2) Supervision of high risk , unspecified, third trimester: Status: Acute (3) Active labor at term: Status: Acute (4) Spontaneous rupture of membranes: Status: Acute Plan: Will send patient to labor and delivery for AmniSure, SANJAY and possible admission Called the unit and report given Office Procedures OB Clinic LOC & Office Proc's Nursing/Assessment Patient Status: Established Patient OB Clinic Nursing Assessment: Medication Reconciliation, Update PMH in EMR and Vital Signs OB Clinic Coordination of Care: Complex Care and Chronic Disease 1-5, Consent,records obtained, informed consent, Education Simp Pt/Fam and Staff clarify orders Special Needs: Heart tones Established Patient Charge Established Patient Point Assignment: 115 Established Patient Point Charge: EP Level 3 (80-115)
== END 2024-12-08 11:22 | disposition home or self-care (01) ==
LOC: HODSOBC 10:37
PROVIDERS: Supervising Provider Obstetrics & Gynecology; Visit Provider Obstetrics & Gynecology
DX: O09.893 Supervision of other high risk pregnancies, third trimester (principal); Z3A.37 37 weeks gestation of pregnancy; O42.92 Full-term premature rupture of membranes, unspecified as to length of time between rupture and onset of labor; Z78.9 Other specified health status
CPT/HCPCS: 99213; G0463

== ENCOUNTER 2024-12-08 11:36 | Inpatient (IN) | payer MEDICAID, SELFPAY ==
[2024-12-08] VITALS (67 sets, daily range): BP systolic 0–161; BP diastolic 0–98; PULSE 72–113; RESP 17–98; TEMP 36.6–36.8; O2SAT 80–100; BMI 30.4
[2024-12-08 12:15] LABS: ROM Kit Lot # 57807112
[2024-12-08 12:16] LABS: ROM Swab Mixed By: GARCN1; Rupture of Fetal Membranes Positive (Negative); Swb Mxed in Solvent 1 min? Yes
[2024-12-08] MEDS: RINGERS LACTATED 1000 ML 1,000 ML 100 ML IV ×2 (13:04→15:15)
[2024-12-08 13:24] LABS: Basophils % (Auto) 0 % (0-2.5); Eosinophils # (Auto) 0.2 Thou/mm3 (0.0-0.5); Eosinophils % (Auto) 2 % (0-10); Hematocrit 38.3 % (36.0-46.0); Hemoglobin 13.1 g/dL (12.0-16.0); Immature Granulocytes % (Auto) 0 % (0-0); Immature Granulocytes Auto 0.03 Thou/mm3 (0.00-0.00); Lymphocytes # (Auto) 2.1 Thou/mm3 (1.0-4.8); Lymphocytes % (Auto) 26 % (10-50); Mean Corpuscular HGB Conc 34.2 g/dl (31.0-37.0); Mean Corpuscular Hemoglobin 28.5 pg (25.0-35.0); Mean Corpuscular Volume 83 fL (80-100); Monocytes # (Auto) 0.5 Thou/mm3 (0.0-0.8); Monocytes % (Auto) 6 % (0-12); Neutrophils # (Auto) 5.3 Thou/mm3 (1.8-7.7); Neutrophils % (Auto) 66 % (37-80); Nucleated Red Blood Cell % 0 /100 WBC (0); Platelet Count 239 Thou/mm3 (140-440); RDW Standard Deviation 41.9 fL (36.4-46.3)
[2024-12-08 13:59] LABS: Syphilis Nonreactive (Nonreactive)
--- NOTE | 2024-12-08 19:58 | PD.LDHP ---
Documentation for date of: 12/08/24 OB Labor/Induct. HPI History of Present Illness Chief complaint: Ruptured membranes at term : 3 Term pregnancies: 2 pregnancies: 0 Living children: 2 History of Abortions: Spontaneous and Elective: 0 History of Vaginal deliveries: 2 History of sections: No History of : No ESTELA: 12/17/24 Gestational Age (weeks): 38 Gestational Age (days): 5 History of present illness: The patient is a 29-year-old -0-0-2 who transferred from [facility] to the [facility]. She saw Dr. Hutton this morning and stated she might have been leaking fluid. She was sent to triage and was diagnosed with ruptured membranes. On admission the patient cervix was closed. She has a history of vaginal delivery x 2 in the past without complications. She was admitted for augmentation of labor secondary to ruptured membranes at term. Patient is a 38 and 5/7 weeks and all PNC is up-to-date and on the chart. History of Present Adequate Care: Yes Ultrasounds: normal 1st trimester US and normal mid trimester US Obstetrical complications: none Medical complications: none Labs Maternal Blood Type: O Pos Labs: Positive: Rubella Titre and Negative: RPR, Hepatitis B, HIV, Chlamydia, Gonorrhea and Group Beta Strep Review of Systems Constitutional Comments: Patient reports good movements no bleeding. On admission no consistent contractions. No foul odor. The amniotic fluid that is leaking is clear. Past Medical History Surgical History SURGICAL: Negative Section Meds Home Medications and Allergies Allergies Allergy/AdvReac Type Severity Reaction Status Date / Time No Known Allergies Allergy Verified 12/08/24 11:05 OB Exam Physical Exam Vital signs: Temp Pulse Resp BP 98.3 F 95 18 130/71 12/08/24 19:19 12/08/24 19:30 12/08/24 19:19 12/08/24 19:30 Routine Abdominal Exam Abdominal: Present soft Detailed Labor and Delivery Exam Dilation (cm): Closed Effacement (%): 80 Cervix position: posterior station: -2 Consistency: medium Presentation: Vertex Membranes: ruptured Amniotic fluid: clear monitor accelerations: 15x15 monitor decelerations: None detention variability: Moderate (11-25) Tachysystole: No Contraction intensity: Mild OB Results Labs 12/08/24 12:55 Labs: Short CBC 12/08/24 Range/Units 12:55 WBC 8.0 (3.6-11.0) Thou/mm3 Hgb 13.1 (12.0-16.0) g/dL Hct 38.3 (36.0-46.0) % Plt Count 239 (140-440) Thou/mm3 OB Assessment & Plan Assessment and Plan (1) Spontaneous rupture of membranes: Status: Acute Assessment and plan: Admit. Oral Cytotec for induction. Epidural or pain medications if desired. (2) Supervision of high risk , unspecified, third trimester: Status: Acute Additional Plan Plan: augmentation and anticipate NVD
--- NOTE | 2024-12-08 22:06 | OBDSUM_ITS ---
Data ([facility]iar[facility]) Data Hx Section: No Maternal Blood Type: O Pos RPR: Non-reactive Labs: Negative: RPR, Hepatitis B, HIV, Chlamydia, Gonorrhea and Group Beta Strep : 3 Para: 2 Term: 2 : 0 : 0 Delivery Data ([facility]bar[facility]) Labor Data Stimulated/Augmented: No ROM Date: 12/08/24 ROM Time: 00:00 Rupture Type: SROM Amniotic Fluid: Clear Delivery Data EDC: 12/17/24 EDC calculated by:: LMP/early US confirmation Labor Onset Stage 1 Date: 12/08/24 Labor Onset Stage 1 Time: 17:26 Labor Onset Stage 2 Date: 12/08/24 Labor Onset Stage 2 Time: 21:24 Delivery Date: 12/08/24 Delivery Time: 21:42 Gestational age (weeks): 38 Gestational age (days): 5 Placenta Delivery Date: 12/08/24 Placenta Delivery Time: 21:49 Delivered by: Jessy Ellis Delivery nurse: Sasha Pearson Claim Professional at delivery: No Support person(s) at delivery: MARTHA Other staff at delivery: Nursery Nurse Other staff at delivery: Emelyn Shearer Delivery Method Delivery: Vaginal Delivery Type: Spontaneous Presentation: Vertex Position: OA Anesthesia Type Primary Anesthesia: None Secondary Anesthesia: Local Placenta Placenta Delivery: Spontaneous Placenta Cultures Obtained: No Placenta Sent for Examination: No Cord Sample: Cord Blood Obtained Lacerations #1: Perineal: 1st degree Perineal repair Sutures used for repair: 4.0 Chromic EBL Estimated blood loss (ml): 150 Umbilical Cord Umbilical Vessels: 3 Nuchal Cord: None Body Cord: None Additional Procedures Patient progressed to complete and pushed approximately 20 minutes delivering a liveborn male. Findings: Liveborn male in the [facility] presentation with no nuchal cord and no meconium. Apgars were 8 and 9. Weight was 7 pounds 9 ounces. Placenta was complete spontaneous grossly normal delivering approximately 5 minutes after the baby delivered. Patient sustained a very small first-degree perineal laceration repaired in a standard fashion with local anesthesia using 4-0 chromic. Complications were none. Condition both mom and infant were in stable condition in the delivery room. EBL was 150 cc and patient went natural without the aid of an epidural. Complications Complications: none [place] Data ([facility]) Data Gender: Male Weight Grams: 3425 1 Minute Total: 8 5 Minute Total: 9
[2024-12-08] MEDS: LIDOCAINE HCL 1% 20 ML VIAL INFL (22:16)
[2024-12-08] MEDS: OXYTOCIN in NS 20 units 20 UNIT/1,000 ML BAG 125 UNIT IV (22:16)
[2024-12-08] MEDS: BENZO/LANO/ALOE (Dermoplast) 60 GM CAN 1 SPRAY TOP (23:07)
[2024-12-08] MEDS: IBUPROFEN TAB 400 MG TABLET 800 MG PO (23:08)
[2024-12-09 00:09] VITALS: TEMP 36.9
[2024-12-09 03:47] VITALS: BP 119/70; PULSE 68; RESP 16; TEMP 36.7; O2SAT 99
[2024-12-09 06:58] LABS: Basophils % (Auto) 0 % (0-2.5); Eosinophils # (Auto) 0.1 Thou/mm3 (0.0-0.5); Eosinophils % (Auto) 1 % (0-10); Hematocrit 33.7 % (36.0-46.0); Hemoglobin 11.4 g/dL (12.0-16.0); Immature Granulocytes % (Auto) 0 % (0-0); Immature Granulocytes Auto 0.06 Thou/mm3 (0.00-0.00); Lymphocytes # (Auto) 2.5 Thou/mm3 (1.0-4.8); Lymphocytes % (Auto) 18 % (10-50); Mean Corpuscular HGB Conc 33.8 g/dl (31.0-37.0); Mean Corpuscular Hemoglobin 28.3 pg (25.0-35.0); Mean Corpuscular Volume 84 fL (80-100); Monocytes # (Auto) 0.8 Thou/mm3 (0.0-0.8); Monocytes % (Auto) 6 % (0-12); Neutrophils # (Auto) 10.6 Thou/mm3 (1.8-7.7); Neutrophils % (Auto) 75 % (37-80); Nucleated Red Blood Cell % 0 /100 WBC (0); Platelet Count 217 Thou/mm3 (140-440); RDW Standard Deviation 41.8 fL (36.4-46.3); Red Blood Count 4.03 Miln/mm3 (4.00-5.20); White Blood Count 14.1 Thou/mm3 (3.6-11.0)
[2024-12-09 08:00] VITALS: BP 123/82; PULSE 65; RESP 18; TEMP 36.7; O2SAT 99
--- NOTE | 2024-12-09 09:23 | PD.LDPPPRG ---
Subjective Subjective Interval history: Delivery type: Patient doing well this morning. No acute complaints. Ambulating, tolerating p.o. and voiding without difficulty. HTN/Pre-Eclampsia screen: No chest pain, shortness of breath, headache, visual changes, epigastric or right upper quadrant pain. Breast-feeding, lochia diminishing. Bowel: Flatus+/ BM+ Exam Vital Signs Temp Pulse Resp BP Pulse Ox O2 Del Method 98.1 F 65 18 123/82 99 Room Air 12/09/24 08:00 12/09/24 08:00 12/09/24 08:00 12/09/24 08:00 12/09/24 08:00 12/09/24 08:00 Constitutional Constitutional: no acute distress Routine HEENT Exam Head: Present normocephalic and atraumatic Eye: Present EOMI and PERRL ENT: Present mucous membranes moist Routine Neck Exam Neck: Present supple and trachea midline Routine Respiratory Exam Respiratory: Present chest non-tender, lungs clear, normal breath sounds and no resp distress Routine Cardiovascular Exam Cardiovascular: Present RRR Routine Abdominal Exam Abdominal: Present soft and normoactive bowel sounds Routine Extremities Exam Extremities: Present full ROM Routine Skin Exam Skin: Present intact, dry and warm Routine Neurological Exam Neurological: Present alert, oriented X3 and CN II-XII intact Routine Psychiatric Exam Psychiatric: Present normal affect and normal thought process Objective Labs 12/09/24 05:55 Labs: Laboratory Results - last 24 hr 12/08/24 12/08/24 12/09/24 11:52 12:55 05:55 WBC 8.0 14.1 H D RBC 4.60 4.03 Hgb 13.1 11.4 L Hct 38.3 33.7 L MCV 83 84 MCH 28.5 28.3 MCHC 34.2 33.8 RDW Std Deviation 41.9 41.8 Plt Count 239 217 Neut % (Auto) 66 75 Lymph % (Auto) 26 18 [place] % (Auto) 6 6 Eos % (Auto) 2 1 Baso % (Auto) 0 0 Neut # (Auto) 5.3 10.6 H Lymph # (Auto) 2.1 2.5 [place] # (Auto) 0.5 0.8 Eos # (Auto) 0.2 0.1 Baso # (Auto) 0.0 0.0 Immature Gran # (Auto) 0.03 H 0.06 H Absolute Nucleated RBC 0.00 0.00 Immature Gran % 0 0 Nucleated RBC % 0 0 Membrane Rupture Positive A Syphilis Serology Nonreactive Blood Type O Positive Antibody Screen NEGATIVE Blood Bank Wristband ID Yes Assessment & Plan Problem List (1) Spontaneous rupture of membranes: Status: Acute (2) Supervision of high risk , unspecified, third trimester: Status: Acute (3) Vaginal delivery: Status: Acute Assessment and plan: 1. Continue routine /post-op care 2. Labs reviewed, cbc appropriate 3. Remove dressing/Ron 4. Encourage to ambulate, shower 5. Encourage PO intake, breast feeding Time Spent With Patient Time: Total time spent is greater than 50% in coordination of care (as documented) at patient's floor/unit and/or counseling patient:
--- NOTE | 2024-12-09 10:53 | CHAP ---
Gave a blessing on and family.
[2024-12-09 11:40] VITALS: BP 107/70; PULSE 68; RESP 18; TEMP 36.7; O2SAT 99
[2024-12-09 16:00] VITALS: BP 117/81; PULSE 69; RESP 18; TEMP 36.7; O2SAT 99
[2024-12-09] MEDS: IBUPROFEN TAB 400 MG TABLET 800 MG PO (16:07)
--- NOTE | 2024-12-09 17:30 | PD.LDDS ---
DS: Providers Provider Date of admission: 12/08/24 12:36 Primary care physician: Physician No Primary/Family Admitting Provider: Jessy Ellis MD (OB Clinic) Attending Provider on Admission: Hernando Hutton MD Consults: 12/08/24 22:02 Referral Routine Comment: Attending Provider on DC: Hernando Hutton MD Discharging Provider: Hernando Hutton MD DS: Diagnosis Discharge Diagnosis (1) Vaginal delivery: Status: Acute (2) Spontaneous rupture of membranes: Status: Acute (3) Oligohydramnios antepartum: Status: Acute (4) Supervision of high risk , unspecified, third trimester: Status: Acute Problem List Completed Was Problem List Reviewed/Reconciled?: Yes Summary/Hosp Course Brief History: The patient is a 29-year-old -0-0-2 [facility]. She saw Dr. Hutotn this morning and stated she might have been leaking fluid. She was sent to triage and was diagnosed with ruptured membranes. On admission the patient cervix was closed. She has a history of vaginal delivery x 2 in the past without complications. She was admitted for augmentation of labor secondary to ruptured membranes at term. Patient is a 38 and 5/7 weeks and all PNC is up-to-date and on the chart. Time Spent with Patient Time attestation: Total time spent providing and/or coordinating discharge services: Exam Vital Signs Temp Pulse Resp BP Pulse Ox O2 Del Method 98.1 F 69 18 117/81 99 Room Air 12/09/24 16:00 12/09/24 16:00 12/09/24 16:00 12/09/24 16:00 12/09/24 16:00 12/09/24 16:00 Discharge Plan Plan Patient Disposition: HOME (Self Care) Patient condition on transfer: Stable Prescriptions/Referrals Prescriptions/Med Rec: New ibuprofen 400 mg Tablet 800 mg PO Q8H PRN (Reason: See Comments) 10 Days Qty: 40 0RF docusate sodium [Stool Softener] 100 mg capsule 100 mg PO QDAY 30 Days Qty: 30 1RF Continued albuterol sulfate 90 mcg/actuation HFA aerosol inhaler 4 inh inhalation Q6H PRN (Reason: shortness of breath or wheezing) 30 Days Qty: 8.5 4RF Referrals: Hernando Hutton MD [Physician] - No Primary/Family,Physician [Primary Care Provider] - Patient/Caregiver Discharge Instructions Meds to Beds: Yes Discharge Activity: activity as tolerated Education Materials: After a Vaginal , After Delivery Randolph Concerns, Breast Care After , Incision Care After Vaginal , Nutrition While , Understanding Depression, : Caring for Yourself, Feel Healthy After Print Language: [place] Island[place] Stand Alone Forms: Lenka Award Info., Patient Portal Info Letter Discharge Order Discharge Orders: Discharge (Routine); Ordered 12/09/24 Ordered By: Hernando Hutton Planned Discharge Date 12/09/24
[2024-12-09 20:00] VITALS: BP 122/78; PULSE 75; RESP 16; TEMP 36.7; O2SAT 97
== END 2024-12-09 22:00 | disposition home or self-care (01) | DRG 560 ==
LOC: S4NX 12-09 06:23 → S4SX 12-09 06:23
PROVIDERS: Admitting Provider Obstetrics & Gynecology; Visit Provider Obstetrics & Gynecology
DX: O42.02 Full-term premature rupture of membranes, onset of labor within 24 hours of rupture (principal); O70.0 First degree perineal laceration during delivery; Z37.0 Single live birth; Z3A.38 38 weeks gestation of pregnancy
CPT/HCPCS: 36415; 59025; 59409; 84112; 85025; 86780; 86850; 86900; 86901; 94762; J2590; J3490; J7120; A9270

== ENCOUNTER 2025-01-08 09:00 | Outpatient (AMB) | payer MEDICAID, SELFPAY ==
[2025-01-08 09:23] VITALS: BP 114/74; PULSE 63; RESP 18; TEMP 36.2; O2SAT 98
--- NOTE | 2025-01-08 09:23 | AMBOBPPN_ITS ---
Vital Signs 01/08/25 09:23 Weight 62.596 kg Weight Measurement Method Standing Scale BP 114/74 Blood Pressure Source Automatic Cuff Blood Pressure Location Left Upper Arm Position Sitting Respiration 18 Pulse 63 Pulse Source Monitor Temp 97.2 F Temp Source Oral Pulse Oximetry (%) 98 Oxygen Delivery Method Room Air Allergies/Home Meds Allergies & Medications Allergies No Known Allergies Allergy (Verified 01/08/25 09:23) Medication Reconciliation albuterol sulfate 90 mcg/actuation aerosol inhaler 4 inh inhalation Q6H PRN shortness of breath or wheezing 30 days #8.5 grams 11/25/24 [Rx Confirmed 01/08/25] docusate sodium 100 mg capsule (Stool Softener) 100 mg PO QDAY 30 days #30 caps 12/09/24 [Rx Confirmed 01/08/25] Intake Visit Data Collection New Patient or Established: Established Patient (seen at [facility] within 3 years) Reason for Visit:: PP Seen by Clinical Staff ONLY (RN/MA): No Assistant Portfolio Manager Required: No Do You Feel Safe at Home: Yes Authorities Contacted: N/A PCP or OBGYN visit in last 3 months: Yes Date of Last PCP or OBGYN visit: 12/09/24 Hx Now: No Are you currently on any form of Control: No Pain Present Currently: No Pain Scale Used: Flores-Serrano/Numerical Pain scale:: 0 Smoking Status Smoking Status: Never smoker 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 History Past Medical History: No Hx Neurological Disorders, No Hx Hypothyroidism, No Hx Hyperthyroidism, No Hx Breast Cancer, No Hx Cardiac Disorders, No Hx Hypertension, No Hx Cancer, No Hx Blood Disorders, No Hx Anemia, No Hx Gastrointestinal Disorders, No Hx Renal Disease, No Hx Deep Vein Thrombosis, No Hx Diabetes Mellitus Type 1, No Hx Diabetes Mellitus Type 2, No Hx Tubal Ligation, No Hx Hysterectomy and No Psychiatric Problems Questionnaires Covid-19 Vaccine Questionnaire Has patient been vacinated for Covid-19 Have you been vacinated for Covid-19: Yes Social History Living Situation History Marital Status: Lives With: Family Housing: House Tobacco History Smoking Status: Never smoker Second Hand Smoke Exposure: No Alcohol History Alcohol Intake: Never Substance Use History Substance Use: NONE Domestic Abuse History Do You Feel Safe at Home: Yes Care OB Visit Log OB Flowsheet Initial Weight: Not Recorded Date -?-?-?-?-?-?-?-?-?-?-?-?- EGA Weight BP Alb Glu CTX Pres Fundal ht FHR Mov Dilation Station Effacement Hx Notes Visit Note 10/14/24 -?-?-?-?-?-?-?-?-?-?-?-?- 30w 6d 69.456 kg 106/70 cephalic 31 155 active 10/28/24 -?-?-?-?-?-?-?-?-?-?-?-?- 32w 6d 68.039 kg 94/61 cephalic 33 150 a ctive 11/20/24 -?-?-?-?-?-?-?-?-?-?-?-?- 36w 1d 70.817 kg 113/74 cephalic 36 145 active No CTX/LOF/VB, reports good FM+ GBS done 12/01/24 -?-?-?-?-?-?-?-?-?-?-?-?- 37w 5d 72.235 kg 110/79 140 active Ellie Bustos, a patient, presents for a routine check-up. She reports no contractions and states the baby has been active. Since her last visit on Sunday, Ellie has noticed swelling in her feet, though she mentions it has decreased slightly. She denies any bleeding, cramping, spotting, nausea, or vomiting. Ellie's mother is planning to visit for the [facility] , arriving on Sunday and departing on Sunday. No contractions/ LOF/VB, reports good FM . Schedule follow-up appointment for next week. Perform cervical check and membrane sweep at next visit. Patient instructed to elevate feet on a thin pillow while sleeping to reduce swelling and to keep moving calf muscles to promote fluid drainage. Compression socks recommended for use while walking. 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 She reports no contractions and states the baby has been active. Since her last visit on Sunday, Ellie has noticed swelling in her feet, though she mentions it has decreased slightly. She denies any bleeding, cramping, spotting, nausea, or vomiting. Ellie's mother is planning to visit for the , arriving on Sunday and departing on Sunday. No contractions/ LOF/VB, reports good FM . Schedule follow-up appointment for next week. Perform cervical check and membrane sweep at next visit. Patient instructed to elevate feet on a thin pillow while sleeping to reduce swelling and to keep moving calf muscles to promote fluid drainage. Compression socks recommended for use while walking. Patient advised she can request the doctor be called if she presents to the hospital when he is not retail loss prevention investigator 12/08/24 -?-?-?-?-?-?-?-?-?-?-?-?- 38w 5d 73.142 kg 118/83 140 active Occasional contractions / LOF as above/denies any VB, reports good FM No DUGGAN/VC/RUQ/Epig pain. Occasional contractions / LO F as above/denies any VB, reports good FM. No DUGGAN/VC/RUQ/Epig pain. Diagnostic Test Results and Labs: - Blood group: O positive, antibody scre en negative - Rubella: Non-immune - RPR: Non-reactive - Hepatitis B surface antigen: Negative - Hepatitis C: Negative - HIV: Negative - Gonorrhea and chlamydia: Negative - NIPT (Non-Invasive Testing): Negative times three. GBS neg. ESTELA Calculator Estimated Delivery Date Method Current WG Current Estimate 12/17/24 LMP (Certain) 43w 2d Office Procedures OB Clinic LOC & Office Proc's Nursing/Assessment Patient Status: Established Patient OB Clinic Nursing Assessment: BP Monitoring, Medication Reconciliation, Update PMH in EMR and Vital Signs OB Clinic Coordination of Care: Consent,records obtained, informed consent, Education Simp Pt/Fam, Results/Orders obtained and Staff clarify orders Established Patient Charge Established Patient Point Assignment: 80 Established Patient Point Charge: EP Level 3 (80-115) Post Follow-up Visit Post Follow up Visit: Yes Assessment & Plan Diagnosis / Problem List (1) Routine Follow-Up: (FP) Tobacco Smoking Status: Never smoker
== END 2025-01-08 09:33 | disposition home or self-care (01) ==
LOC: HODSOBC 09:00
PROVIDERS: PCP Obstetrics & Gynecology; Referring Provider Obstetrics & Gynecology; Supervising Provider Obstetrics & Gynecology; Visit Provider Obstetrics & Gynecology
DX: Z39.2 Encounter for routine postpartum follow-up (principal)
CPT/HCPCS: 99213; G0463

== ENCOUNTER → 2025-01-26 | Outpatient (CLI) | payer MEDICAID, SELFPAY ==
--- NOTE | 2025-01-26 13:30 | XR_ITS ---
Examination: CT soft tissue neck, without intravenous contrast. 2-D coronal reconstructions. 2-D sagittal reconstructions. Date and time of exam :January 26, 2025 1514 hours Comparison January 26, 2025 INDICATIONS: Left-sided palpable lymph nodes 2 years. CTDI: vol (mGy):12.9 DLP: (mGycm):336 Technique: 1.25 mm axial sections of the neck of the obtained. Coronal and sagittal reconstructions have been obtained. Intravenous Low dose protocols were performed. One or more of the following dose reduction techniques were used; automated exposure control, adjustment of the mA and/or KV according to patient size, use of iterative reconstruction technique. Findings: More prominent carotid triangle lymphadenopathy compared to the November 15, 2023 study The largest left carotid triangle lymph node is 16 mm, right carotid triangle lymph node 14 mm Bilateral submental lymph nodes, the largest node 22 mm on the right Smaller posterior cervical lymph nodes Symmetrical oropharynx nasopharynx No prevertebral soft tissue prominence IMPRESSION: Progression of cervical lymphadenopathy compared with November 07, 2023, consider MRI soft tissue neck follow-up pre and postcontrast to exclude occult oropharyngeal tumor causing this lymphadenopathy
[2025-01-26 14:39] LABS: HCG Qualitative,Urine Negative
== END | disposition home or self-care (01) ==
PROVIDERS: PCP Physician Assistant; Referring Provider Physician Assistant; Visit Provider Physician Assistant
DX: R59.0 Localized enlarged lymph nodes (principal); Z32.00 Encounter for pregnancy test, result unknown
CPT/HCPCS: 70490; 81025

== ENCOUNTER 2025-01-29 13:05 | Outpatient (AMB) | payer MEDICAID, SELFPAY ==
[2025-01-29 13:21] VITALS: BP 115/77; PULSE 77; RESP 18; TEMP 36.2; O2SAT 97; BMI 24.0
--- NOTE | 2025-01-29 13:21 | AMB.GYNCLNOT ---
Vital Signs 01/29/25 13:21 Height 1.63 m Height Method Stated Weight 63.503 kg Weight Measurement Method Standing Scale BMI 24.0 BP 115/77 Blood Pressure Source Automatic Cuff Blood Pressure Location Left Upper Arm Position Sitting Respiration 18 Pulse 77 Pulse Source Monitor Temp 97.2 F Temp Source Oral Pulse Oximetry (%) 97 Oxygen Delivery Method Room Air Allergies/Home Meds Allergies & Medications Allergies No Known Allergies Allergy (Verified 01/29/25 13:22) Medication Reconciliation albuterol sulfate 90 mcg/actuation aerosol inhaler 4 inh inhalation Q6H PRN shortness of breath or wheezing 30 days #8.5 grams 11/25/24 [Rx Confirmed 01/29/25] docusate sodium 100 mg capsule (Stool Softener) 100 mg PO QDAY 30 days #30 caps 12/09/24 [Rx Confirmed 01/29/25] drospirenone 3 mg-ethinyl estradiol 0.02 mg tablet (JEN (28)) 1 tab PO QDAY 84 days #84 tabs 01/29/25 [Rx] Intake Visit Data Collection New Patient or Established: Established Patient (seen at [facility] within 3 years) 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 Visit:: 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 Seen by Clinical Staff ONLY (RN/MA): No Mortar 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 Required: No Do You Feel Safe at Home: Yes Authorities Contacted: N/A PCP or OBGYN visit in last 3 months: Yes Date of Last PCP or OBGYN visit: 01/08/25 Hx Now: No Are you currently on any form of Control: No Pain Present Currently: No Pain Scale Used: Flores-Serrano/Numerical Pain scale:: 0 Smoking Status Smoking Status: Never smoker 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 Menstrual regularity: regular Flow: normal Monthly: Yes Menopausal: No Currently sexually active: No If not currently sexually active, have you ever been sexually active: No MANAGER MEDICARE: Past Medical History Past Medical History: No Hx Neurological Disorders, No Hx Hypothyroidism, No Hx Hyperthyroidism, No Hx Breast Cancer, No Hx Cardiac Disorders, No Hx Hypertension, No Hx Cancer, No Hx Blood Disorders, No Hx Anemia, No Hx Gastrointestinal Disorders, No Hx Renal Disease, No Hx Deep Vein Thrombosis, No Hx Diabetes Mellitus Type 1, No Hx Diabetes Mellitus Type 2, No Hx Tubal Ligation, No Hx Hysterectomy and No Psychiatric Problems Questionnaires Covid-19 Vaccine Questionnaire Has patient been vacinated for Covid-19 Have you been vacinated for Covid-19: Yes PHQ-9 PHQ-2 Over the last 2 weeks, how often have you been bothered by any of the following problems? 1. Little interest or pleasure in doing things: not at all 2. Feeling down, depressed, or hopeless: not at all Total score: 0 PHQ-9 3. Trouble falling or staying asleep, or sleeping too much: Not at all 4. Feeling tired or having little energy: Not at all 5. Poor appetite or overeating: Not at all 6. Feeling bad about yourself - or that you are a failure or have let yourself or your family down: Not at all 7. Trouble concentrating on things, such as reading the newspaper or watching television: Not at all 8. Moving or speaking so slowly that other people could have noticed? - Or the opposite - being so fidgety or restless that you have been moving around a lot more than usual: not at all 9. Thoughts that you would be better off or of hurting yourself in some way: Not at all Total score: 0 If you checked off any problems, how difficult have these problems made it for you to do your work, take care of things at home, or get along with other people?: not difficult at all Source: Developed by Drs. Juwan Brock, Cindy Girard, Khoi Moura and colleagues, with an educational lamberto from [employer]. Depression screen completed yes Social History Living Situation History Lives With: Family Housing: House Tobacco History Smoking Status: Never smoker Second Hand Smoke Exposure: No Alcohol History Alcohol Intake: Never Substance Use History Substance Use: NONE Domestic Abuse History Do You Feel Safe at Home: Yes History of Present Illness HPI Narrative Patient reports feeling a little sad at times and not wanting to go out, but recognizes the need to be active for her daughter's summer. She expresses concern about swollen lymph nodes, for which she recently underwent a CT scan. Patient mentions noticing more lumps under her uterus a week before giving , but was told everything was fine. She has a history of a breast biopsy with a marker in place. Patient reports feeling anxious about her health, stating she tends to freak out and overthink. She mentions difficulty reaching the disability office regarding her leave extension. The patient's current symptoms appear to be impacting her daily functioning and mood, as she expresses a desire to stay home and not go out. She is a 6-week patient status post normal vaginal delivery, presenting for follow-up and scheduled Nexplanon insertion. She has decided against the Nexplanon and opts to try oral contraceptive pills instead. The patient is currently . She has a history of lymphadenopathy requiring CT scan and MRI, and a breast mass requiring biopsy marker placement. Patient is on disability benefits, recently extended to March 20. Review of Systems Review of Systems Systems Reviewed: All systems reviewed, normal except as documented Exam General General Appearance: alert, in no apparent distress and healthy appearing Head Head exam: atraumatic Neck Neck exam: Present normal inspection, trachea midline and lymphadenopathy (Left supraclavicular lymphadenopathy palpated, nontender) Chest Chest inspection: Present normal inspection and symmetric chest wall rise External exam: Present normal external exam; Absent tenderness Neuro Neurological exam: Present oriented X3 Psych Psychiatric exam: Present normal affect and normal mood Office Procedures OB Clinic LOC & Office Proc's Nursing/Assessment Patient Status: Established Patient OB Clinic Nursing Assessment: Medication Reconciliation, Update PMH in EMR and Vital Signs OB Clinic Coordination of Care: Education Complex Pt/Fam, Consent,records obtained, informed consent, Lab and Imaging orders and Staff clarify orders Established Patient Charge Established Patient Point Assignment: 80 Established Patient Point Charge: EP Level 3 (80-115) Assessment & Plan Diagnosis / Problem List (1) Left breast lump: Status: Acute (2) Localized enlarged lymph nodes: Status: Acute (3) Vaginal delivery: Status: Acute (4) depression: Status: Acute Plan Follow-up Plan: - Prescribe oral contraceptive pills compatible with . - Send prescription to [facility]. - Refer for bilateral breast ultrasound at [facility]. - Order CT scan of chest with CT-guided biopsy of cervical lymph node at [facility]. - Coordinate referral processing with [facility]. - Follow up on imaging results. - Encourage patient to engage in outdoor activities, especially with her daughter. - Monitor mood symptoms and reassess at follow-up. - Extend disability until March 20. - Complete and submit necessary disability forms online.
== END 2025-01-29 13:54 | disposition home or self-care (01) ==
LOC: HODSOBC 13:05
PROVIDERS: PCP Obstetrics & Gynecology; Referring Provider Obstetrics & Gynecology; Supervising Provider Obstetrics & Gynecology; Visit Provider Obstetrics & Gynecology
DX: Z39.2 Encounter for routine postpartum follow-up (principal); Z30.011 Encounter for initial prescription of contraceptive pills; Z39.1 Encounter for care and examination of lactating mother; O99.345 Other mental disorders complicating the puerperium; F53.0 Postpartum depression; O99.893 Other specified diseases and conditions complicating puerperium; R59.0 Localized enlarged lymph nodes; N63.0 Unspecified lump in unspecified breast
CPT/HCPCS: 99213; G0463

== ENCOUNTER → 2025-03-10 | Outpatient (CLI) | payer MEDICAID, SELFPAY ==
[2025-03-10 08:41] LABS: HCG Qualitative,Urine Negative
== END | disposition home or self-care (01) ==
PROVIDERS: PCP Physician Assistant; Referring Provider Physician Assistant; Visit Provider Physician Assistant
DX: Z53.8 Procedure and treatment not carried out for other reasons (principal); Z32.00 Encounter for pregnancy test, result unknown
CPT/HCPCS: 81025